=== PATIENT | female | born 1980 | race Two or more races ===

== ENCOUNTER 2024-08-31 07:27 | Outpatient (OUT) | payer BC, SELFPAY ==
[2024-08-31 07:46] LABS: Basophils Percent Auto 0.7 % (0.2-2.0); Eosinophils Absolute Auto 0.1 10^3/uL (0.0-0.7); Eosinophils Percent Auto 2.4 % (0.9-7.0); Hematocrit 35.3 % (36.0-48.0); Hemoglobin 11.2 g/dL (12.0-16.0); Immature Granulocytes Abs Auto 0.02 10^3/uL (0.00-0.03); Immature Granulocytes Pct Auto 0.4 % (0.0-0.5); Lymphocytes Absolute Auto 1.8 10^3/uL (1.2-3.8); Lymphocytes Percent Auto 38.2 % (20.5-60.0); Mean Corpuscular HGB Conc 31.7 g/dL (29.9-35.2); Mean Corpuscular Hemoglobin 25.7 pg (26.7-34.0); Mean Corpuscular Volume 81.1 fL (81.0-99.0); Mean Platelet Volume 9.8 fL (9.5-13.5); Monocytes Absolute Auto 0.5 10^3/uL (0.3-0.8); Monocytes Percent Auto 11.4 % (1.7-12.0); Neutrophils Absolute Auto 2.2 10^3/uL (1.4-6.5); Neutrophils Percent Auto 46.9 % (43.0-75.0); Platelet Count 405 10^3/uL (150-450); Red Blood Count 4.35 10^6/uL (4.20-5.40); Red Cell Distribution Width 15.3 % (11.0-15.0); White Blood Count 4.6 10^3/uL (4.0-11.0)
[2024-08-31 08:27] LABS: Estimated Average Glucose 108 mg/dL; Glycohemoglobin A1C 5.4 % (4.5-6.2)
[2024-08-31 09:27] LABS: Thyroid Stimulating Hormone 1.204 uIU/mL (0.358-3.740)
[2024-08-31 09:28] LABS: HCG Quantitative <1 mIU/mL
[2024-09-01 05:10] LABS: DHEA-Sulfate 59.1 ug/dL (57.3-279.2); FSH 14.2 mIU/mL (.); Luteinizing Hormone(LH) 11.2 mIU/mL (.)
[2024-09-05 11:13] LABS: DHEA, Serum 125 ng/dL (31-701)
== END 2024-08-31 07:28 | disposition home or self-care (01) ==
LOC: LAB 07:28
PROVIDERS: PCP Nurse Practitioner Family; Visit Provider Obstetrics & Gynecology
DX: N92.1 Excessive and frequent menstruation with irregular cycle (principal)
CPT/HCPCS: 36415; 82626; 82627; 83001; 83002; 83036; 84439; 84443; 84702; 85025

== ENCOUNTER 2024-11-02 14:38 | Outpatient (OUT) | payer BC, SELFPAY ==
--- NOTE | 2024-11-02 10:21 | XR_ITS ---
[address] [address] Patient Name: KEVEN MOSES MRN: [id number] date: 1980 Sex: F Assigned Patient Location: [facility] Current Patient Location: [facility] Accession/Order Number: [id number] Exam Date: 11/02/2024 10:47 Report Date: 11/02/2024 10:47 At the request of: LEXX ROWAN DO Procedure: XR chest 2V Chest 2 views CLINICAL HISTORY: Preop exam COMPARISON: None FINDINGS: Heart normal size. Lungs are clear. No free air. XR/XR chest 2V IMPRESSION: NO ACUTE CARDIOPULMONARY ABNORMALITY. Impression dictated by: Raul Rojas Jr., D.O. 11/02/2024 10:47 AM Dictation Location: [place] [address] Electronically authenticated by: [id number] Y Date: 11/02/2024 10:47
== END 2024-11-02 14:39 | disposition home or self-care (01) ==
LOC: PST 14:38
PROVIDERS: PCP Nurse Practitioner Family; Visit Provider Obstetrics & Gynecology
DX: Z01.810 Encounter for preprocedural cardiovascular examination (principal); D25.9 Leiomyoma of uterus, unspecified; N94.6 Dysmenorrhea, unspecified; N92.1 Excessive and frequent menstruation with irregular cycle; R10.2 Pelvic and perineal pain
CPT/HCPCS: 71046

== ENCOUNTER 2024-11-16 09:46 | Day surgery (SDC) | payer BC, SELFPAY ==
[2024-11-02 10:36] VITALS: BP 123/74; PULSE 56; TEMP 36.3; O2SAT 99; BMI 28.2
[2024-11-16] VITALS (9 sets, daily range): BP systolic 108–135; BP diastolic 42–82; PULSE 51–84; TEMP 36.3–36.5; O2SAT 97–100; BMI 21.1; BMI 27.9
[2024-11-16 09:59] LABS: Basophils Percent Auto 0.3 % (0.2-2.0); Eosinophils Absolute Auto 0.1 10^3/uL (0.0-0.7); Eosinophils Percent Auto 0.8 % (0.9-7.0); Hematocrit 37.7 % (36.0-48.0); Immature Granulocytes Abs Auto 0.04 10^3/uL (0.00-0.03); Immature Granulocytes Pct Auto 0.6 % (0.0-0.5); Lymphocytes Absolute Auto 2.1 10^3/uL (1.2-3.8); Lymphocytes Percent Auto 29.7 % (20.5-60.0); Mean Corpuscular HGB Conc 31.8 g/dL (29.9-35.2); Mean Corpuscular Hemoglobin 23.9 pg (26.7-34.0); Mean Corpuscular Volume 75.1 fL (81.0-99.0); Mean Platelet Volume 10.1 fL (9.5-13.5); Monocytes Absolute Auto 0.7 10^3/uL (0.3-0.8); Monocytes Percent Auto 9.6 % (1.7-12.0); Neutrophils Absolute Auto 4.2 10^3/uL (1.4-6.5); Platelet Count 275 10^3/uL (150-450); Red Blood Count 5.02 10^6/uL (4.20-5.40); Red Cell Distribution Width 20.7 % (11.0-15.0); White Blood Count 7.1 10^3/uL (4.0-11.0)
[2024-11-16 10:16] LABS: HCG Quantitative <1 mIU/mL
[2024-11-16] MEDS: LACTATED RINGER'S SOLUTION 1,000 ML 50 ML IV ×2 (10:55→13:40)
--- NOTE | 2024-11-16 13:17 | P.ON_ITS ---
Brief Operative Note Date of procedure: 11/16/24 Pre-op diagnosis general: menorrhagia, pelvic pain,dysmenorrhea, dysparenia Post-op diagnosis: same as pre-op Procedure: NAME OF PROCEDURE: [d&c hysteroscopy, diagnostic laparoscopy, lysis of adhesions] findings-enlarged uterus, multiple uterine fibroids, significant adhesions, intrauterine fibroids PROCEDURE: The patient was taken back to the Operating Room where she was prepped and draped in normal sterile fashion after being placed under general anesthesia without difficulty. She was also placed in the dorsal lithotomy position. A weighted speculum was placed in the patient?s vagina. The anterior lip of the cervix was identified and grasped with a single tooth tenaculum. The patient?s uterus was then sounded roughly to [9? ] cm. The patient was then gently dilated using Hegar dilators. The hysteroscope was passed through the patient?s cervix into the uterus. Both ostia were identified. Normal appearing endometrium. No gross evidence of polyps, fibroids or malignancy. The hysteroscope was then removed from the patient's uterus.? At that point, gentle curettage was performed until a gritty texture was noted. The endometrial curettings were sent out to pathology.? The single tooth tenaculum was then removed from the patient's anterior lip of the cervix where excellent hemostasis was noted. A sponge stick was placed into the patient's vagina. Attention was turned to the patient's abdomen, where a small umbilical incision was made. The fascia was tented using Beltran clamps and the fascia was entered sharply. Confirmation of intraabdominal placement of the 10 mm port was confirmed under direct visualization using a laparoscope. The patient's abdomen was then insufflated using CO2 gas with approximately 4 liters. A second port was placed left laterally, this was done under direct visualization with a 5 mm port. Survey of the patient's abdomen demonstrated normal liver and gallbladder. Survey of the patient's pelvic anatomy demonstrated normal appearing rt and lt ovary and tubes as well as normal appearing uterus. No endometrial implants could be noted, no evidence of any pelvic disease was seen, normal appearing pelvic cavity. All instruments were removed from the patient's abdomen. The patient's abdomen was deinsufflated of CO2 gas. The patient tolerated the procedure well. Sponge stick was removed from the patient's vagina. The patient's infraumbilical fascia was closed using #0 Vicryl on a GI needle. The patient's skin was closed laterally and infraumbilically using 4-0 Vicryl. The patient tolerated the procedure well. Sponge, lap and needle counts were correct x 2. The patient was taken to Recovery Room in stable condition. Anesthesia: DOROTHY Surgeon: Octavio Jackson Pipeline Dispatch Operator: Vanita Hager Estimated blood loss (mL): 5 Pathology: other (endometrial currettings, endometrial polyp, endometrial fibroid) Condition: stable Disposition: PACU
[2024-11-16] MEDS: LACTATED RINGER'S SOLUTION 1,000 ML 150 ML IV (14:46)
--- NOTE | 2024-11-16 15:16 | PC.NURSE ---
Up to bathroom and voids clear yellow without difficulty; peripad changed for scant amount bleeding
[2024-11-16] MEDS: HYDROCODONE/ACET 5-325 MG TABLET 1 TAB PO (15:20)
--- NOTE | 2024-11-16 15:42 | PC.NURSE ---
Up to bathroom and voids without difficulty; peripad changed for small amount dark red bleeding; states she passed a clot with voiding
== END 2024-11-16 15:54 | disposition home or self-care (01) ==
PROVIDERS: PCP Nurse Practitioner Family; Visit Provider Obstetrics & Gynecology
PROC: (CPT 840; principal; 2024-11-16 11:15)
DX: D25.9 Leiomyoma of uterus, unspecified (principal); N94.6 Dysmenorrhea, unspecified; N92.1 Excessive and frequent menstruation with irregular cycle; R10.2 Pelvic and perineal pain; N84.0 Polyp of corpus uteri; F17.290 Nicotine dependence, other tobacco product, uncomplicated; K21.9 Gastro-esophageal reflux disease without esophagitis
CPT/HCPCS: 49329; 58558; 36415; 84702; 85025; 88305; J1100; J1885; J2250; J2704; J3010

== ENCOUNTER 2025-01-25 14:18 | Outpatient (OUT) | payer BC, SELFPAY ==
--- OUTSIDE RECORDS SUMMARY | 2025-01-25 14:20 | XMS_ITS | Clinical Summary ---
Author Organization [facility] Address [address] [place], [place] [id number] Care Team Providers Care Stamping Bench Die Maker Name Role Phone Unavailable Primary Care Provider Unavailabl e Allergies No known active allergies Medications ACETAMINOPHEN (TYLENOL 8 HOUR ORAL) Take by mouth. Active hydrOXYchloroQUI NE (PLAQUENIL) 200 mg tabletIndication s:Systemic lupus erythematosus, unspecified SLE type, unspecified organ involvement status (HCC) Take 1 tablet by mouth once daily. 90 tablet 3 06/05/2021 Active Active Problems Problem Noted Date Diagnosed Date Lupus (systemic lupus erythematosus) 11/02/2012 Idiopathic thrombocytopenic purpura 06/22/2012 Family History Medical History Relation Comments No Ocular Disease Father No Ocular Disease Mother Relation Status Comments Father Mother Social History Tobacco Use Types Packs/Day Years Used Date Smoking Tobacco: Former Smokeless Tobacco: Never Alcohol Use Standard Drinks/Week Comments Yes 0 (1 standard drink = 0.6 oz pur e alcohol) PHQ-2 Answer Date Recorded PHQ-2 score 0 02/14/2020 Area Deprivation Index Answer Date Jonathan rded National Score (1-100), lower number is lower ri sk 84 07/23/2022 State Score (1-10), lower number is lower risk N ot on file 07/23/2022 Data from: https://www.neighborhoodatlas.medicine.[facility].edu/. Last address used for calculation [address] [place] [address] 07/23/2022 Comments No Sex and Gender Information Value Date Recorded Sex Assigned at Not on file Legal Sex Female 10:12 AM EST Gender Identity Not on file Sexual Orientation Not on file Last Filed Vital Signs Vital Sign Reading Time Taken Comments Blood Pressure 103/71 06/12/2021 10:13 AM EST Pulse 63 06/12/2021 10:13 AM EST Temperature 36.7 C (98.1 F) 06/12/2021 10:13 AM EST Respiratory Rate 16 06/12/2021 10:13 AM EST Oxygen Saturation 98% 06/12/2021 10:13 AM EST Inhaled Oxygen Concentration - - Weight 68.6 kg (151 lb 3.2 oz) 06/12/2021 10:13 AM EST Height 160 cm (5' 2.99 ) 06/12/2021 10:13 AM EST Body Mass Index 26.79 06/12/2021 10:13 AM EST Plan of Treatment Health Maintenance Due Date Last Done Comments Anxiety Screening 1998 Depression Screening 1998 HIV Screening 1998 DTaP,Tdap,Td Vaccine (1 - Tdap) 11/30/1999 Hepatitis B Vaccine (1 of 3 - 19+ 3-dose series) 11/29 Cervical Cancer Screening 2001 Mammogram Screening 2020 Influenza Vaccine (#1) 2025 Hepatitis C Screening Completed 09/26/2014 Procedures Procedure Name Priority Date/Time Associated Diagnosis Comments HEP REMOTE PANEL BL Routine 09/26/2014 10:10 AM EDT ITP (idiopathic thrombocytopenic purpura) Lupus (systemic lupus erythematosus) from Last 3 Months or Most Recently Relevant to Health Maintenance Results * HEP REMOTE PANEL BL (09/26/2014 10:10 AM EDT) Hep B Core Ab, Total Negative Negative 09/27/2014 2:15 AM EDT [facility] Hep C Antibody IA Negative Negative 09/27/2014 2:15 AM EDT [facility] HBsAg Negative Negative 09/27/2014 2:15 AM EDT [facility] Hep B Surface Ab, Qual Negative Negative 09/27/2014 2:15 AM EDT [facility] Comment:NEGATIVE Blood specimen (specimen) BLOOD SPECIMEN / Unknown 09/26/2014 10:10 AM EDT 09/26/2014 10:12 AM EDT Ryan Guy [facility] Final Result [facility] [address] [place] [address] from Last 3 Months or Most Recently Relevant to Health Maintenance
--- OUTSIDE RECORDS SUMMARY | 2025-01-25 14:20 | XMS_ITS | Encounter Summary ---
Author Organization [facility] Address [address] [place] [address] Care Team Providers Care Mushroom Laborer Name Role Phone Sammie Diaz SKEINS YARN EXAMINER Unavailable Scott Troy MD Primary Care Provider [phone] Sammie Diaz SKEINS YARN EXAMINER Unavailable Encounter Details Date Type Department Care Team (Late Contact Info) Description 10/19/2023 Abstract [facility] [place] [address] [facility] 110 [place] [address] Unallocated, [facility] ProviderMD [address] [place] [address] Social History Tobacco Use Types Packs/Day Years Used Date Smoking Tobacco: Never Assessed Comments Unknown Sex and Gender Information Value Date Recorded Sex Assigned at Not on file Legal Sex Female 10:52 AM EDT Gender Identity Not on file Sexual Orientation Not on file documented as of this encounter Plan of Treatment Upcoming Encounters Date Type Department Care Team ([facility] Contact Info) Description 02/07/2025 11:10 AM EDT Office Visit SCOTTIE MACKENZIE [address] [facility] [place] [address] Dacia Shah, JOSE L [address] [facility] [place] [address] 03/12/2025 11:20 AM EDT Office Visit SCOTTIE MACKENZIE [address] [place] [address] Mariam Finch PA [address] [place] [address] [place] [address] documented as of this encounter Visit Diagnoses Not on filedocumented in this encounter Care Teams Mushroom Laborer Relationship Specialty Start Date End Date Scott Troy MD [address] [facility] 110 [place] [address] PCP - General Internal Medicine 12/19/23 Sammie Diaz, SKEINS YARN EXAMINER [address] [facility] 110 [place] [address] PCP - [facility] 12/26/23 Sammie Diaz, SKEINS YARN EXAMINER [address] [facility] 110 [place] [address] Nurse Practitioner Family Medicine 11/25/23 documented as of this encounter
--- OUTSIDE RECORDS SUMMARY | 2025-01-25 14:20 | XMS_ITS | Clinical Summary ---
Author Organization [facility] Address [address] [place] [address] Care Team Providers Care Road Test Examiner Name Role Phone Sammie Diaz MAKING MACHINE OPERATOR Unavailable Scott Troy MD Primary Care Provider [phone] Allergies No known active allergies Medications ibuprofen 800 MG tablet TAKE 1 TABLET BY MOUTH EVERY 8 HOURS FOR 14 DAYS 11/16/2024 Active Active Problems Problem Noted Date Diagnosed Date Irregular periods/menstrual cycles 08/20/2024 Menorrhagia with irregular cycle 08/20/2024 Vitamin D deficiency 02/20/2024 Overweight (BMI 25.0-29.9) 02/20/2024 Pain of both elbows 02/20/2024 Lupus (systemic lupus erythematosus) 11/02/2012 Idiopathic thrombocytopenic purpura 06/22/2012 Encounters Date Type Department Care Team Description 01/01/2025 8:40 [place] [address] Lexx Jackson DO Pre-op examination; Dysmenorrhea; Menorrhagia with regular cycle; Pelvic pain; Intramural and submucous leiomyoma of uterus; Dyspareunia in female 11/20/2024 8:50 AM EDT [place] [address] Lexx Jackson DO Postoperative follow-up 11/20/2024 [place] [address] Lexx Jackson DO 11/16/2024 Abstract [facility]ana M[facility]IE [address] [place] [address] Renetta Lexx, 11/16/2024 Clinisync Result Encounter [facility] External Department Unsolicited Lexx Jackson, 11/02/2024 Clinisync Result Encounter [facility] External Department Unsolicited Lexx Jackson, from Last 3 Months Family History Medical History Relation Name Comments Hypertension Father Diabetes Mother Heart attack Mother Heart disease Mother History of rita ast cancer with her siblings. Hyperlipidemia Mother Hypertension Mother Stroke Mother Relation Name Status Comments Father Mother Social History Tobacco Use Types Packs/Day Years Used Date Smoking Tobacco: Never Smokeless Tobacco: Never Alcohol Use Standard Drinks/Week Comments Yes 6 (1 standard drink = 0.6 oz pur e alcohol) Comments No Sex and Gender Information Value Date Recorded Sex Assigned at Not on file Legal Sex Female 10:52 AM EDT Gender Identity Not on file Sexual Orientation Not on file Last Filed Vital Signs Vital Sign Reading Time Taken Comments Blood Pressure 112/70 01/01/2025 8:54 AM EDT Pulse 64 02/20/2024 8:04 AM EDT Temperature - - Respiratory Rate 16 02/20/2024 8:04 AM EDT Oxygen Saturation 99% 02/20/2024 8:04 AM EDT Inhaled Oxygen Concentration - - Weight 67.1 kg (148 lb) 01/01/2025 8:54 AM EDT Height 154.9 cm (5' 1 ) 08/20/2024 1:15 PM EST Body Mass Index 27.96 08/20/2024 1:15 PM EST Plan of Treatment Upcoming Encounters Date Type Department Care Team (Late st Contact Info) Description 02/07/2025 11:10 AM EDT Office Visit SCOTTIE MACKENZIE [address] [place] [address] Dacia Shah, JOSE L [address] [place] [address] 03/12/2025 11:20 AM EDT Office Visit SCOTTIE MACKENZIE [address] [place] [address] Mariam Finch PA [address] [facility] [place] [address] Health Maintenance Due Date Last Done Comments Pap Smear 2001 Cervical Cancer Screening 2010 HPV/Cotest 2010 Mammogram 11/10/2024 11/11/2023 Influenza Vaccine (#1) 2025 Procedures Procedure Name Priority Date/Time Associated Diagnosis Comments [facility] PREG QUANT HCG Routine 11/16/2024 9: 50 AM EDT ALL CBC WITH AUTO DIFF Routine 9:50 AM EDT XR CHEST 2V 11/02/2024 10:47 AM EDT BI MAMMOGRAM SCREENING TOMOSYNTHESIS BILATERAL Routine 11/11/2023 10:13 AM EDT Breast cancer screening by mammogram from Last 3 Months or Most Recently Relevant to Health Maintenance Results * TB PREG QUANT HCG (11/16/2024 9:50 AM EDT) Pathologist [facility] HCG QUANTITATIVE <1 mIU/mL [facility] Comment: 5-50 0.2-1 WEEK 50-500 1-2 WEEKS 100-5,000 2-3 WEEKS 500-10,000 3-4 WEEKS 1,000-50,000 4-5 WEEKS 10,000-100,000 5-6 WEEKS 15,000-200,000 6-8 WEEKS 10,000-100,000 2-3 MONTHS 11/16/2024 9:50 AM EDT 11/16/2024 9:51 AM EDT Narrative CLINIS[facility] - 11/16/2024 10:16 AM EDT us Lexx Renetta DO CLINISYNC Final Result [facility] * (ABNORMAL) ALL CBC WITH AUTO DIFF (11/16/2024 9:50 AM EDT) [facility] TB WBC 7.1 4.0 - 11.0 10 3/uL [facility] TBH RBC 5.02 4.20 - 5.40 10 6/uL [facility] TBH HGB 12.0 12.0 - 16.0 g/dL [facility]H TBH HCT 37.7 36.0 - 48.0 % [facility] TBH MCV 75.1(L) 81.0 - 99.0 fL TBH TBH MCH 23.9(L) 26.7 - 34.0 pg TBH TBH MCHC 31.8 29.9 - 35.2 g/dL [facility]H TBH RDW 20.7(H) 11.0 - 15.0 % TBH TBH PLT 275 150 - 450 10 3/uL TBH TBH MPV 10.1 9.5 - 13.5 fL TBH NEUTROPHILS PERCENT AUTO 59.0 43.0 - 75.0 % [facility] LYMPHOCYTES PERCENT AUTO 29.7 20.5 - 60.0 % [facility] MONOCYTES PERCENT AUTO 9.6 1.7 - 12.0 % [facility] TBH EO % 0.8(L) 0.9 - 7.0 % [facility] BASOPHILS PERCENT AUTO 0.3 0.2 - 2.0 % [facility] IMMATURE GRANULOCYTES PCT AUTO 0.6(H) 0.0 - 0.5 % TB[facility] NEUTROPHILS ABSOLUTE AUTO 4.2 1.4 - 6.5 10 3/uL [facility] LYMPHOCYTES ABSOLUTE AUTO 2.1 1.2 - 3.8 10 3/uL TB[facility] MONOCYTES ABSOLUTE AUTO 0.7 0.3 - 0.8 10 3/uL TBH TBH EO # 0.1 0.0 - 0.7 10 3/uL TB[facility] BASOPHILS ABSOLUTE AUTO 0.0 0.0 - 0.1 10 3/uL [facility] IMMATURE GRANULOCYTES ABS AUTO 0.04(H) 0.00 - 0.03 10 3/uL [facility] 11/16/2024 9:50 AM EDT 11/16/2024 9:51 AM EDT Narrative CLIN[facility]YNC - 11/16/2024 10:01 AM EDT Lexx Jackson DO CLINISYNC Final Result [facility] * XR CHEST 2V (11/02/2024 10:47 AM EDT) Anatomical Region Laterality Modality Other 11/02/2024 10:4 7 AM EDT Narrative 11/02/2024 10:49 AM EDT [address] [address] XRay Report Signed Patient: JANA BARRAGAN MR#: [id number] : 1980 Acct:[id number] Age/Sex: 43 / F ADM Date: Loc: [facility] Attending Dr: Lexx Jackson D.O. Ordering Physician: Lexx Jackson D.O. Date of Service: 11/02/24 Procedure(s): XR chest 2V Accession Number(s): [id number] cc: Lexx Jackson D.O.; Sammie Diaz MAKING MACHINE OPERATOR [place] [address] Patient Name: JANA BARRAGAN MRN: [id number] date: 1980 Sex: F [facility] Current Patient Location: [facility] Accession/Order Number: [id number] Exam Date: 11/02/2024 10:47 Report Date: 11/02/2024 10:47 At the request of: LEXX JACKSON DO Procedure: XR chest 2V Chest 2 views CLINICAL HISTORY: Preop exam COMPARISON: None FINDINGS: Heart normal size. Lungs are clear. No free air. XR/XR chest 2V IMPRESSION: NO ACUTE CARDIOPULMONARY ABNORMALITY. Impression dictated by: Raul Rojas Jr., D.O. 11/02/2024 10:47 AM Dictation Location: [place] [address] Electronically authenticated by: [id number] Y Date: 11/02/2024 10:47 Dictated By: Raul Rojas M.D. Signed By: 11/02/24 1049 DD/ 1047 TD/TT: Polishing Pad Mounter: Procedure Note Radiology, Radiologist, MD - 11/02/[address] [address] XRay Report Signed Patient: JANA BARRAGAN MMR#: [id number] : 1980Acct:[id number] Age/Sex: 43 / FADM Date: Loc: [facility] Attending Dr: Lexx Jackson D.O. Ordering Physician: Lexx Jackson D.O. Date of Service: 11/02/24 Procedure(s): XR chest 2V Accession Number(s): [id number] cc: Lexx Jackson D.O.; Sammie Diaz MAKING MACHINE OPERATOR The [address] [address] Patient Name: JANA BARRAGAN MRN: [id number] date: 1980 Sex: F Assigned Patient Location: [facility] Current Patient Location: [facility] Accession/Order Number: [id number] Exam Date: 11/02/2024 10:47 Report Date: 11/02/2024 10:47 At the request of: LEXX JACKSON DO Procedure: XR chest 2V Chest 2 views CLINICAL HISTORY: Preop exam COMPARISON: None FINDINGS: Heart normal size. Lungs are clear. No free air. XR/XR chest 2V IMPRESSION: NO ACUTE CARDIOPULMONARY ABNORMALITY. Impression dictated by: Raul Rojas Jr., D.O. 11/02/2024 10:47 AM Dictation Location: [place] [address] Electronically authenticated by: [id number] Y Date: 0:47 Dictated By: Raul Rojas M.D. Signed By:11/02/24 1049 DD/ 1047 TD/TT: Polishing Pad Mounter: Lexx Jackson DO [facility]IN[facility]NC IMAGING Final Result * Bilateral screening mammogram with tomosynthesis (11/11/2023 10:13 AM EDT) Anatomical Region Laterality Modality Breast Bilateral Mammography 11/14/2023 6:55 PM EDT Impressions 11/15/2023 8:15 AM EDT BIRADS 2 - Benign Follow-up: Routine Screening Mamm COMMENT: Given dense breast tissue, recommend close correlation with self-breast and clinical exam findings. If any new symptoms or signs present clinically, recommend ultrasound to complement mammography. Board Certified Radiologists. Accredited by the ACR and FDA. MAMMOGRAPHY IS VERY IMPORTANT TO YOUR HEALTH. THE [employer] GUIDELINES RECOMMEND THAT WOMEN 40 YEARS OF AGE AND OLDER SHOULD HAVE A MAMMOGRAM EVERY YEAR. A REMINDER LETTER WILL BE SENT AT THE APPROPRIATE TIME. THIS FACILITY UTILIZES A REMINDER SYSTEM TO ENSURE ALL PATIENTS RECEIVE REMINDER NOTIFICATIONS AT THE APPROPRIATE TIME BASED ON THE RECOMMENDATIONS OF THIS EXAM. THIS INCLUDES REMINDERS FOR ROUTINE SCREENING MAMMOGRAMS, DIAGNOSTIC MAMMOGRAMS IN WHICH THE PATIENT IS ASKED TO RETURN FOR ADDITIONAL VIEWS, OR OTHER BREAST IMAGING INTERVENTIONS WHEN APPROPRIATE. THE PATIENT WILL BE PLACED IN THE APPROPRIATE REMINDER SYSTEM INCLUDING A REMINDER AT THE APPROPRIATE TIME FOR ANY PENDING ADDITIONAL VIEWS. TRANSCRIBED BY: ELECTRONICALLY SIGNED BY: Raul Desai MD Narrative 11/15/2023 8:15 AM EDT EXAMINATION: BI MAMMOGRAM SCREENING TOMOSYNTHESIS BILATERAL CLINICAL HISTORY:sceenings COMPARISON: There are no previous mammograms available for comparison. RESULT: Digital mammography and 3D tomosynthesis of bilateral breasts was performed. Density: Heterogeneously dense [3] Typically benign calcifications. There is no suspicious mass, asymmetry, architectural distortion, or calcification Procedure Note Raul Desai MD - 11/15/2023 EXAMINATION: BI MAMMOGRAM SCREENING TOMOSYNTHESIS BILATERAL CLINICAL HISTORY:sceenings COMPARISON: There are no previous mammograms available for comparison. RESULT: Digital mammography and 3D tomosynthesis of bilateral breasts wasperformed. Density: Heterogeneously dense [3] Typically benign calcifications. There is no suspicious mass, asymmetry, architectural distortion, orcalcification IMPRESSION: BIRADS 2 - Benign Follow-up: Routine Screening Mamm COMMENT: Given dense breast tissue, recommend close correlation withself-breast and clinical exam findings. If any new symptoms or signspresent clinically, recommend ultrasound to complement mammography. Board Certified Radiologists. Accredited by the ACR and FDA. MAMMOGRAPHY IS VERY IMPORTANT TO YOUR HEALTH. THE [employer]UIDELINES RECOMMEND THAT WOMEN 40 YEARS OF AGE AND OLDER SHOULD HAVE AMAMMOGRAM EVERY YEAR. A REMINDER LETTER WILL BE SENT AT THE APPROPRIATE TIME. THIS FACILITYUTILIZES A REMINDER SYSTEM TO ENSURE ALL PATIENTS RECEIVE REMINDERNOTIFICATIONS AT THE APPROPRIATE TIME BASED ON THE RECOMMENDATIONS OF THISEXAM. THIS INCLUDES REMINDERS FOR ROUTINE SCREENING MAMMOGRAMS, DIAGNOSTICMAMMOGRAMS IN WHICH THE PATIENT IS ASKED TO RETURN FOR ADDITIONAL VIEWS,OR OTHER BREAST IMAGING INTERVENTIONS WHEN APPROPRIATE. THE PATIENT WILLBE PLACED IN THE APPROPRIATE REMINDER SYSTEM INCLUDING A REMINDER AT THEAPPROPRIATE TIME FOR ANY PENDING ADDITIONAL VIEWS. TRANSCRIBED BY: ELECTRONICALLY SIGNED BY: Raul Desai MD Sammie Diaz NP IMG BI PROCEDURES Final Result from Last 3 Months or Most Recently Relevant to Health Maintenance Insurance BS Care Teams Road Test Examiner Relationship Specialty Start Date End Date Scott Troy MD [address] [facility] 110 [place] [address] PCP - General Internal Medicine 12/19/23 Sammie Diaz, JOSE L [address] [facility] 110 [place] [address] Nurse Practitioner Family Medicine 11/25/23
--- OUTSIDE RECORDS SUMMARY | 2025-01-25 14:20 | XMS_ITS | Encounter Summary ---
Author Organization [facility] Address [address] [place] [address] Care Team Providers Care Mounter Hand Name Role Phone Sammie Diaz DOUGH MACHINE OPERATOR Unavailable Scott Troy MD Primary Care Provider [phone] Encounter Details Date Type Department Care Team (Late Contact Info) Description 11/16/2024 Abstract SCOTTIE MACKENZIE [address] [place] [address] Octavio Jackson DO [address] [facility] [address] [place], [facility] Social History Tobacco Use Types Packs/Day Years Used Date Smoking Tobacco: Never Smokeless Tobacco: Never Alcohol Use Standard Drinks/Week Comments Yes 6 (1 standard drink = 0.6 oz pur e alcohol) Comments Unknown Sex and Gender Information Value Date Recorded Sex Assigned at Not on file Legal Sex Female 10:52 AM EDT Gender Identity Not on file Sexual Orientation Not on file documented as of this encounter Plan of Treatment Upcoming Encounters Date Type Department Care Team (Late Contact Info) Description 02/07/2025 11:10 AM EDT Office Visit [facility] [address] [facility] [place] [address] Dacia Shah NP [address] [place] [address] 03/12/2025 11:20 AM EDT Office Visit [facility] [address] [facility] [place] [address] Mariam Finch PA [address] [place] [address] [place] [address] documented as of this encounter Visit Diagnoses Not on filedocumented in this encounter Care Teams Mounter Hand Relationship Specialty Start Date End Date Scott Troy MD [address] [facility] 110 [place] [address] PCP - General Internal Medicine 12/19/23 Sammie Diaz, JOSE L [address] [facility] 110 [place] [address] Nurse Practitioner Family Medicine 11/25/23 documented as of this encounter
[2025-01-25 14:56] LABS: Hematocrit 34.3 % (36.0-48.0); Hemoglobin 11.3 g/dL (12.0-16.0); Immature Granulocytes Abs Auto 0.02 10^3/uL (0.00-0.03); Immature Granulocytes Pct Auto 0.3 % (0.0-0.5); Lymphocytes Absolute Auto 1.5 10^3/uL (1.2-3.8); Mean Corpuscular HGB Conc 32.9 g/dL (29.9-35.2); Mean Corpuscular Hemoglobin 26.2 pg (26.7-34.0); Mean Corpuscular Volume 79.6 fL (81.0-99.0); Platelet Count 251 10^3/uL (150-450); Red Blood Count 4.31 10^6/uL (4.20-5.40); White Blood Count 5.8 10^3/uL (4.0-11.0)
[2025-01-25 15:01] LABS: Alanine Aminotransferase 22 U/L (14-59); Albumin Globulin Ratio 1.1; Albumin Level 3.6 g/dL (3.4-5.0); Alkaline Phosphatase 80 U/L (46-116); Anion Gap 14.6; Aspartate Amino Transferase 16 U/L (15-37); Blood Urea Nitrogen 16.0 mg/dL (7.0-18.0); Calcium 8.5 mg/dL (8.5-10.1); Carbon Dioxide 23.8 mmol/L (21.0-32.0); Chloride 105 mmol/L (98-107); Estimated GFR (African America >60 (>=60 mL/min/1.73m^2); Estimated GFR (Non-African Ame >60 (>=60 mL/min/1.73m^2); Globulin 3.4 g/dL; Glucose 93 mg/dL (74-106); Potassium 3.4 mmol/L (3.5-5.1); Sodium 140 mmol/L (136-145); Total Protein 7.0 g/dL (6.4-8.2)
[2025-01-25 15:04] LABS: INR 1.03; Partial Thromboplastin Time 28.4 sec (22.3-36.2); Prothrombin Time 10.9 sec (9.0-11.6)
== END 2025-01-25 14:19 | disposition home or self-care (01) ==
PROVIDERS: PCP Nurse Practitioner Family; Visit Provider Obstetrics & Gynecology
DX: Z01.812 Encounter for preprocedural laboratory examination (principal); D25.0 Submucous leiomyoma of uterus; N94.6 Dysmenorrhea, unspecified; N92.0 Excessive and frequent menstruation with regular cycle; R10.2 Pelvic and perineal pain; N94.10 Unspecified dyspareunia
CPT/HCPCS: 80048; 80076; 85025; 85610; 85730; 86850; 86870; 86880; 86900; 86901; 86905; 86906

== ENCOUNTER 2025-01-31 12:33 | Inpatient (IN) | payer BC, SELFPAY ==
[2025-01-25 14:37] VITALS: BP 115/73; PULSE 71; TEMP 36.4; O2SAT 100; BMI 27.6
[2025-01-31] VITALS (15 sets, daily range): BP systolic 106–152; BP diastolic 69–90; PULSE 46–71; TEMP 35.8–36.8; O2SAT 92–100; BMI 27.8
[2025-01-31 10:52] LABS: Hematocrit 38.0 % (36.0-48.0); Hemoglobin 12.4 g/dL (12.0-16.0); Immature Granulocytes Abs Auto 0.01 10^3/uL (0.00-0.03); Immature Granulocytes Pct Auto 0.2 % (0.0-0.5); Lymphocytes Absolute Auto 2.0 10^3/uL (1.2-3.8); Mean Corpuscular HGB Conc 32.6 g/dL (29.9-35.2); Mean Corpuscular Hemoglobin 26.2 pg (26.7-34.0); Mean Corpuscular Volume 80.3 fL (81.0-99.0); Platelet Count 238 10^3/uL (150-450); Red Blood Count 4.73 10^6/uL (4.20-5.40); White Blood Count 6.1 10^3/uL (4.0-11.0)
--- NOTE | 2025-01-31 11:00 | ECG_ITS ---
[facility] Test Date: 2025-01-31 Pat Name: KEVEN MOSES Department: Room: - Gender: Female Heavy Truck Mechanic: : 1980 Requested By: LEXX ROWAN Order Number: [id number] Reading MD: SHON AVALOS M.D. Measurements Intervals [place] Rate: 56 P: 53 TX: 142 QRS: -25 QRSD: 98 T: 24 QT: 415 QTc: 403 Interpretive Statements SINUS BRADYCARDIA BORDERLINE LEFT AXIS DEVIATION [QRS AXIS < -20] Borderline ECG No previous ECG available for comparison Electronically Signed On 02-02-2025 7:30:22 EDT by SHON AVALOS M.D.
[2025-01-31 11:24] LABS: Alanine Aminotransferase 19 U/L (14-59); Albumin Globulin Ratio 0.9; Albumin Level 3.6 g/dL (3.4-5.0); Alkaline Phosphatase 78 U/L (46-116); Anion Gap 12.3; Aspartate Amino Transferase 13 U/L (15-37); Blood Urea Nitrogen 11.0 mg/dL (7.0-18.0); Calcium 8.9 mg/dL (8.5-10.1); Carbon Dioxide 25.4 mmol/L (21.0-32.0); Chloride 106 mmol/L (98-107); Estimated GFR (African America >60 (>=60 mL/min/1.73m^2); Estimated GFR (Non-African Ame >60 (>=60 mL/min/1.73m^2); Globulin 3.8 g/dL; Glucose 100 mg/dL (74-106); Potassium 3.7 mmol/L (3.5-5.1); Sodium 140 mmol/L (136-145); Total Protein 7.4 g/dL (6.4-8.2)
--- OUTSIDE RECORDS SUMMARY | 2025-01-31 12:15 | XMS_ITS | Encounter Summary ---
Author Organization [facility] Address [address] [place] [address] Care Team Providers Care Infectious Disease Physician Name Role Phone Sammie Diaz NEEDLE LOOM TENDER Unavailable Scott Troy MD Primary Care Provider [phone] Sammie Diaz NEEDLE LOOM TENDER Unavailable Encounter Details Date Type Department Care Team (Late Contact Info) Description 10/19/2023 Abstract SCOTTIE Bello [facility] [address] [facility] 110 [place] [address] Unallocated, [facility] Provider[facility] [address] [place] [address] Social History Tobacco Use Types Packs/Day Years Used Date Smoking Tobacco: Never Assessed Comments Unknown Sex and Gender Information Value Date Recorded Sex Assigned at Not on file Legal Sex Female 10:52 AM EDT Gender Identity Not on file Sexual Orientation Not on file documented as of this encounter Plan of Treatment Upcoming Encounters Date Type Department Care Team ([facility] Contact Info) Description 02/07/2025 11:10 AM EDT Office Visit SCOTTIE MACKENZIE [address] [facility] [place] [address] Dacia Shah, JOSE L [address] [facility] [place] [address] 03/12/2025 11:20 AM EDT Office Visit SCOTTIE MACKENZIE [address] [place] [address] Mariam Finch PA [address] [place] [address] [place] [address] documented as of this encounter Visit Diagnoses Not on filedocumented in this encounter Care Teams Infectious Disease Physician Relationship Specialty Start Date End Date Scott Troy MD 112 [facility] 110 [place] [address] PCP - General Internal Medicine 12/19/23 Sammie Diaz, NEEDLE LOOM TENDER [address] [facility] 110 [place] [address] PCP - [facility] 12/26/23 Sammie Diaz, NEEDLE LOOM TENDER 112 [facility] 110 [place] [address] Nurse Practitioner Family Medicine 11/25/23 documented as of this encounter
--- OUTSIDE RECORDS SUMMARY | 2025-01-31 12:15 | XMS_ITS | Encounter Summary ---
Author Organization [facility] Address [address] [place] [address] Care Team Providers Care Rn Lactation Consultant Name Role Phone Sammie Diaz ICE CREAM SCOOPER Unavailable Scott Troy MD Primary Care Provider [phone] Encounter Details Date Type Department Care Team (Late Contact Info) Description 11/16/2024 Abstract SCOTTIE MACKENZIE 102 [facility] [place] [address] Octavio Jackson DO [address] [facility] [address] [place], [facility] Social History Tobacco Use Types Packs/Day Years [...] AM EDT Office Visit SCOTTIE MACKENZIE 102 [facility] [place] [address] Dacia Shah NP [address] [place] [address] 03/12/2025 11:20 AM EDT Office Visit SCOTTIE MACKENZIE 102 [facility] [place] [address] Mariam Finch PA [address] [place] [address] [place] [address] documented as of this encounter Visit Diagnoses Not on filedocumented in this encounter Care Teams Rn Lactation Consultant Relationship Specialty Start Date End Date Scott Troy MD 112 [place] [facility] 110 [place] [address] PCP - General Internal Medicine 12/19/23 Sammie Diaz, JOSE L 112 [facility] 110 [place] [address] Nurse Practitioner Family Medicine 11/25/23 documented as of this encounter
--- OUTSIDE RECORDS SUMMARY | 2025-01-31 12:15 | XMS_ITS | Encounter Summary ---
Author Organization [facility] Address [address] [place] [address] Care Team Providers Care Hand Finisher Name Role Phone Joe Sammie Sheets WHEEL CLEANER Unavailable Scott Troy MD Primary Care Provider [phone] Encounter Details Date Type Department Care Team (Late Contact Info) Description 01/28/2025 Orders Only NOMTj MACKENZIE [address] [place] [address] Octavio Jackson DO [address] [facility] [address] [place], [place] [id number] Irregular periods/menstrual cycles; Idiopathic thrombocytopenic purpura (HCC); Vitamin D deficiency Social History Tobacco Use Types Packs/Day Years [...] on file documented as of this encounter Progress Notes * Michelle Kearney LPN - 01/28/2025 9:16 AM EDT Orders needed for upcoming surgery on 01/31/25--ss documented in this encounter Plan of Treatment Upcoming Encounters Date Type Department Care Team (Late Contact Info) Description 02/07/2025 11:10 AM EDT Office Visit NOMS Prabhakar MACKENZIE [address] [place] [address] Dacia Shah NP [address] [facility] [place] [address] 03/12/2025 11:20 AM EDT Office Visit NOMS Prabhakar MACKENZIE [address] [facility] [place] [address] Mariam Finch PA [address] [facility] [place] [address] Scheduled Orders Name Type Priority Associated Diagnoses Orde r Schedule Type and screen Lab Routine Irregular periods/menstrual cycles Idiopathic thrombocytopenic purpura (HCC) Vitamin D deficiency Expected: 01/28/2025 (Approximate), Expires: 01/28/2026 Prepare RBC: 2 Units Blood Bank Routine Irregular periods/menstrual cycles Idiopathic thrombocytopenic purpura (HCC) Vitamin D deficiency Expected: 01/28/2025 (Approximate), Expires: 01/28/2026 documented as of this encounter Visit Diagnoses Diagnosis Irregular periods/menstrual cycles Idiopathic thrombocytopenic purpura (HCC) Immune thrombocytopenic purpura Vitamin D deficiency documented in this encounter Care Teams Hand Finisher Relationship Specialty Start Date End Date Scott Troy MD [address] [place] [facility] 110 [place] [address] PCP - General Internal Medicine 12/19/23 Sammie Diaz, JOSE L [address] [facility] 110 [place] [address] Nurse Practitioner Family Medicine 11/25/23 documented as of this encounter
--- OUTSIDE RECORDS SUMMARY | 2025-01-31 12:15 | XMS_ITS | Clinical Summary ---
Author Organization [employer] [facility] Address [facility] [place] [address] Care Team Providers Care Flight Simulator Teacher Name Role Phone Unavailable Primary Care Provider Unavailabl e Social History Tobacco Use Types Packs/Day Years Used Date Smoking Tobacco: Never Assessed Childcare Answer Date Recorded Childcare Unknown 12/06/2018 Employment Answer Date Recorded Employment Unknown 12/06/2018 Comments Unknown Sex and Gender Information Value Date Recorded Sex Assigned at Not on file Legal Sex Female 11:39 AM EDT Gender Identity Not on file Sexual Orientation Not on file Plan of Treatment Not on file Medical Devices Not on file
--- OUTSIDE RECORDS SUMMARY | 2025-01-31 12:15 | XMS_ITS | Clinical Summary ---
Author Organization [facility] Address [address] [place] [address] Care Team Providers Care Director Of Home Care Hospice Name Role Phone Sammie Diaz BOAT TESTER Unavailable Scott Troy MD Primary Care Provider [phone] Allergies No known active allergies Medications ibuprofen [...] Encounters Date Type Department Care Team Description 01/31/2025 Clinisync Result Encounter NOMS External Department Unsolicited Lexx Jackson DO 01/28/2025 [place] [address] Lexx Jackson DO Irregular periods/menstrual cycles; Idiopathic thrombocytopenic purpura (HCC); Vitamin D deficiency 01/25/2025 Clinisync Result Encounter NOMS External Department Unsolicited Lexx Jackson DO 01/01/2025 8:40 AM EDT [place] [address] Lexx Jackson DO Pre-op examination; Dysmenorrhea; Menorrhagia with regular cycle; Pelvic pain; Intramural and submucous leiomyoma of uterus; Dyspareunia in female 11/20/2024 8:50 AM EDT [place] [address] Lexx Jackson DO Postoperative follow-up 11/20/2024 Bamboo flowsheet NOMS Alana MACKENZIE 102 [facility] [address] Lexx Jackson, 11/16/2024 Abstract NOMS Alana MACKENZIE [address] [place] [address] Lexx Jackson, 11/16/2024 Clinisync Result Encounter NOMS External Department Unsolicited Lexx Jackson, 11/02/2024 Clinisync Result Encounter NOMS External Department Unsolicited Lexx Jackson DO from Last 3 Months Family History Medical [...] AM EDT Office Visit SCOTTIE MACKENZIE 102 [facility] [place] [address] Dacia Shah, JOSE L [address] [facility] [place] [address] 03/12/2025 11:20 AM EDT Office Visit SCOTTIE MACKENZIE 102 [facility] [place] [address] Mariam Finch PA [address] [facility] [place] [address] Health Maintenance Due Date Last Done Comments Pap Smear 2001 Cervical Cancer Screening 2010 HPV/Cotest 2010 Mammogram 11/10/2024 11/11/2023 Influenza Vaccine (#1) 2025 Procedures Procedure Name Priority Date/Time Associated Diagnosis Comments TBH PREG QUANT HCG Routine 01/31/2025 10 :47 AM EDT [facility] CMP (CMP) (FOR REMOTE [facility] USE) Routine 01/31/2025 10:47 AM EDT ALL CBC WITH AUTO DIFF Routine 10:47 AM EDT HMHP ANTIBODY ID Routine 01/25/2025 2:35 PM EDT ALL TYPE AND SCREEN Routine 01/25/2025 2 :35 PM EDT [facility] APTT Routine 01/25/2025 2:35 PM EDT SRMCO[facility] PROTHROMBIN TIME INR W/O COUM Routine 01/25/2025 2:35 PM EDT ALL BASIC METABOLIC PANEL Routine 01/25/2025 2:35 PM EDT HMHP LIVER PANEL Routine 01/25/2025 2:35 PM EDT ALL CBC WITH AUTO DIFF Routine 2:35 PM EDT TBH PREG QUANT HCG Routine 11/16/2024 9: 50 AM EDT ALL CBC WITH AUTO DIFF Routine 9:50 AM EDT XR CHEST 2V 11/02/2024 10:47 AM EDT BI MAMMOGRAM SCREENING TOMOSYNTHESIS BILATERAL Routine 11/11/2023 10:13 AM EDT Breast cancer screening by mammogram from Last 3 Months or Most Recently Relevant to Health Maintenance Results * TBH PREG QUANT HCG (01/31/2025 10:47 AM EDT) Only the most recent of2 resultswithin the time period is included. HCG QUANTITATIVE <1 mIU/mL TBH Comment: 5-50 0.2-1 WEEK 50-500 1-2 WEEKS 100-5,000 2-3 WEEKS 500-10,000 3-4 WEEKS 1,000-50,000 4-5 WEEKS 10,000-100,000 5-6 WEEKS 15,000-200,000 6-8 WEEKS 10,000-100,000 2-3 MONTHS 01/31/2025 10:4 7 AM EDT 01/31/2025 10:49 AM EDT Narrative CLINISYNC - 01/31/2025 11:46 AM EDT us Lexx Renetta DO CLINISYNC Final Result CLINIS[facility]NC TB * (ABNORMAL) [facility] CMP (CMP) (FOR REMOTE [facility] USE) (01/31/2025 10:47 AM EDT) SODIUM 140 136 - 145 mmol/L TBH POTASSIUM 3.7 3.5 - 5.1 mmol/L TBH CHLORIDE 106 98 - 107 mmol/L TBH CARBON DIOXIDE 25.4 21.0 - 32.0 mmol/L TBH ANION GAP 12.3 TBH GLUCOSE 100 74 - 106 mg/dL TBH BLOOD UREA NITROGEN 11.0 7.0 - 18.0 mg/dL TBH CREATININE 0.40(L) 0.55 - 1.02 mg/dL TBH TBH EGFR-AF RWANDAN >60 >=60 mL/min/1. 73m 2 TBH TBH EGFR-NON AF RWANDAN >60 >=60 mL/min/1. 73m 2 TBH BUN CREATININE RATIO 27.5 TBH CALCIUM 8.9 8.5 - 10.1 mg/dL TBH BILIRUBIN TOTAL 0.4 0.2 - 1.0 mg/dL TBH ASPARTATE AMINO TRANSFERASE 13(L) 15 - 37 U/L TBH ALANINE AMINOTRANSFERASE 19 14 - 59 U/L TBH ALKALINE PHOSPHATASE 78 46 - 116 U/L TBH TOTAL PROTEIN 7.4 6.4 - 8.2 g/dL TBH ALBUMIN LEVEL 3.6 3.4 - 5.0 g/dL TBH GLOBULIN 3.8 g/dL TBH ALBUMIN GLOBULIN RATIO 0.9 TBH 01/31/2025 10:4 7 AM EDT 01/31/2025 10:49 AM EDT Narrative CLINISYNC - 01/31/2025 11:46 AM EDT us Lexx Renetta DO CLINISYNC Final Result [facility] * (ABNORMAL) ALL CBC WITH AUTO DIFF (01/31/2025 10:47 AM EDT) Only the most recent of3 resultswithin the time period is included. TBH WBC 6.1 4.0 - 11.0 10 3/uL TBH TBH RBC 4.73 4.20 - 5.40 10 6/uL TBH TBH HGB 12.4 12.0 - 16.0 g/dL TBH TBH HCT 38.0 36.0 - 48.0 % TBH TBH MCV 80.3(L) 81.0 - 99.0 fL TBH TBH MCH 26.2(L) 26.7 - 34.0 pg TBH TBH MCHC 32.6 29.9 - 35.2 g/dL TBH TBH RDW 16.9(H) 11.0 - 15.0 % TBH TBH PLT 238 150 - 450 10 3/uL TBH TBH MPV 10.6 9.5 - 13.5 fL TBH NEUTROPHILS PERCENT AUTO 56.5 43.0 - 75.0 % TBH LYMPHOCYTES PERCENT AUTO 33.6 20.5 - 60.0 % TBH MONOCYTES PERCENT AUTO 8.1 1.7 - 12.0 % TBH TBH EO % 1.3 0.9 - 7.0 % TBH BASOPHILS PERCENT AUTO 0.3 0.2 - 2.0 % TBH IMMATURE GRANULOCYTES PCT AUTO 0.2 0.0 - 0.5 % TBH NEUTROPHILS ABSOLUTE AUTO 3.4 1.4 - 6.5 10 3/uL TBH LYMPHOCYTES ABSOLUTE AUTO 2.0 1.2 - 3.8 10 3/uL TBH MONOCYTES ABSOLUTE AUTO 0.5 0.3 - 0.8 10 3/uL TBH TBH EO # 0.1 0.0 - 0.7 10 3/uL TBH BASOPHILS ABSOLUTE AUTO 0.0 0.0 - 0.1 10 3/uL TBH IMMATURE GRANULOCYTES ABS AUTO 0.01 0.00 - 0.03 10 3/uL TBH 01/31/2025 10:4 7 AM EDT 01/31/2025 10:49 AM EDT Narrative CLINISYNC - 01/31/2025 11:00 AM EDT Lexx Jackson DO CLINISYNC Final Result [facility] * [facility] PROTHROMBIN TIME INR W/O COUM (01/25/2025 2:35 PM EDT) Pathologist [facility] PROTHROMBIN TIME 10.9 9.0 - 11.6 sec TBH TBH INR 1.03 TBH Comment: DESIRED INR: 2.0-3.0 CONDITIONS NOT LISTED BELOW 2.5-3.5 FOR PROSTHETIC HEART VALVE REPLACEMENT 2.5-3.5 RECURRENT THROMBOSIS 01/25/2025 2:35 PM EDT 01/25/2025 2:40 PM EDT Narrative CLINISYNC - 01/25/2025 3:23 PM EDT [facility] Renetta DO CLINISYNC Final Result CLINISYNC TBH * HMHP LIVER PANEL (01/25/2025 2:35 PM EDT) BILIRUBIN TOTAL 0.4 0.2 - 1.0 mg/dL TB BILIRUBIN DIRECT 0.1 0.0 - 0.2 mg/dL TBH ASPARTATE AMINO TRANSFERASE 16 15 - 37 U/L TBH ALANINE AMINOTRANSFERASE 22 14 - 59 U/L TBH ALKALINE PHOSPHATASE 80 46 - 116 U/L TB TOTAL PROTEIN 7.0 6.4 - 8.2 g/dL TBH ALBUMIN LEVEL 3.6 3.4 - 5.0 g/dL TBH GLOBULIN 3.4 g/dL TBH ALBUMIN GLOBULIN RATIO 1.1 TBH 01/25/2025 2:35 PM EDT 01/25/2025 2:40 PM EDT Narrative CLINISYNC - 01/25/2025 3:11 PM EDT [facility] DO CLINISYNC Final Result Performing Organization Address [facility]/ZIP Co de Phone Number CLINISYNC TB * HMHP ANTIBODY ID (01/25/2025 2:35 PM EDT) Pathologist [facility] TB ANTIBODY ID PANEL [facility] Comment:PERFORMED BY [employer]AN [employer] 01/25/2025 2:35 PM EDT 01/25/2025 2:40 PM EDT Narrative CLINISYNC - 01/31/2025 8:53 AM EDT [facility] , [facility] Renetta DO CLINISYNC Final Result CLINISYNC TBH * [facility]CF APTT (01/25/2025 2:35 PM EDT) PARTIAL THROMBOPLASTIN TIME 28.4 22.3 - 36.2 sec TBH 01/25/2025 2:35 PM EDT 01/25/2025 2:40 PM EDT Narrative CLINISYNV - 01/25/2025 3:23 PM EDT us Lexx Renetta DO CLINISYNC Final Result [facility] * ALL TYPE AND SCREEN (01/25/2025 2:35 PM EDT) Pathologist [facility] BLOOD TYPE O Positive TBH ANTIBODY SCREEN POSITIVE TBH 01/25/2025 2:35 PM EDT 01/25/2025 2:40 PM EDT Narrative CLINISYNV - 01/31/2025 8:53 AM EDT Spec expiration changed by EncentuateFER on 01/25/25 Reason: SURGICAL EXTENSION Spec expiration changed by NSCHAFER on 01/25/25 Reason: ANTIBODY SCREEN POSITIVE [facility] , [employer] DO CLINISYNC Final Result Performing Organization Address City/[facility]/ZIP Co de Phone Number [facility] * (ABNORMAL) ALL BASIC METABOLIC PANEL (01/25/2025 2:35 PM EDT) SODIUM 140 136 - 145 mmol/L TBH POTASSIUM 3.4(L) 3.5 - 5.1 mmol/L TBH CHLORIDE 105 98 - 107 mmol/L TBH CARBON DIOXIDE 23.8 21.0 - 32.0 mmol/L TBH ANION GAP 14.6 TBH GLUCOSE 93 74 - 106 mg/dL TBH BLOOD UREA NITROGEN 16.0 7.0 - 18.0 mg/dL TBH CREATININE 0.48(L) 0.55 - 1.02 mg/dL TBH TBH EGFR-AF RWANDAN >60 >=60 mL/min/1.7 3m 2 TBH TBH EGFR-NON AF RWANDAN >60 >=60 mL/min/1.7 3m 2 TBH BUN CREATININE RATIO 33.3 TBH CALCIUM 8.5 8.5 - 10.1 mg/dL TBH 01/25/2025 2:35 PM EDT 01/25/2025 2:40 PM EDT Narrative CLINISYNC - 01/25/2025 3:11 PM EDT Lexx Jackson DO CLINISYNC Final Result [facility] * XR CHEST 2V (11/02/2024 10:47 AM EDT) Anatomical Region Laterality Modality Other 11/02/2024 10:4 7 AM EDT Narrative 11/02/2024 10:[place] [address] XRay Report Signed Patient: JANA BARRAGAN MR#: [id number] : 1980 Acct:[id number] Age/Sex: 43 / F ADM Date: Loc: [facility] Attending Dr: Lexx Jackson D.O. Ordering Physician: Lexx Jackson D.O. Date of Service: 11/02/24 Procedure(s): XR chest 2V Accession Number(s): [id number] cc: Lexx Jackson D.O.; Sammie Diaz BOAT TESTER [place] [id number] Patient Name: JANA BARRAGAN MRN: [id number] date: 1980 Sex: F Assigned Patient Location: [facility] Current Patient Location: [facility] Accession/Order Number: [id number] Exam Date: 11/02/2024 10:47 Report Date: 11/02/2024 10:47 At the request of: ELXX JACKSON DO Procedure: XR chest 2V Chest 2 views CLINICAL HISTORY: Preop exam COMPARISON: None FINDINGS: Heart normal size. Lungs are clear. No free air. XR/XR chest 2V IMPRESSION: NO ACUTE CARDIOPULMONARY ABNORMALITY. Impression dictated by: Raul Rojas Jr., D.O. 11/02/2024 10:47 AM Dictation Location: [place] [address] Electronically authenticated by: [id number] Y Date: 11/02/2024 10:47 Dictated By: Raul Rojas M.D. Signed By: 11/02/249 DD/ 46 TD/TT: Gaming Investigator: Procedure Note Radiology, Radiologist, - 11/02/2024 [place] [address] XRay Report Signed Patient: JANA BARRAGAN MMR#: [id number] : 1980Acct:[id number] Age/Sex: 43 / FADM Date: Loc: [facility] Attending Dr: Lexx Jackson D.O. Ordering Physician: Lexx Jackson D.O. Date of Service: 11/02/24 Procedure(s): XR chest 2V Accession Number(s): [id number] cc: Lexx Jackson D.O.; Sammie Diaz BOAT TESTER [place] [address] Patient Name: JANA BARRAGAN MRN: [id number] date: 1980 Sex: F Assigned Patient Location: [facility] Current Patient Location: [facility] Accession/Order Number: [id number] Exam Date: 11/02/2024 10:47 Report Date: 11/02/2024 10:47 At the request of: LEXX JACKSON DO Procedure: XR chest 2V Chest 2 views CLINICAL HISTORY: Preop exam COMPARISON: None FINDINGS: Heart normal size. Lungs are clear. No free air. XR/XR chest 2V IMPRESSION: NO ACUTE CARDIOPULMONARY ABNORMALITY. Impression dictated by: Raul Rojas Jr., D.O. 11/02/2024 10:47 AM Dictation Location: [place] [address] Electronically authenticated by: [id number] Y Date: 0:47 Dictated By: Raul Rojas M.D. Signed By:11/02/249 DD/ 46 TD/TT: Gaming Investigator: us Lexx Jackson DO CLINISYNC IMAGING Final Result [...] IS VERY IMPORTANT TO YOUR HEALTH. THE [place] [employer] GUIDELINES RECOMMEND THAT WOMEN 40 [...] IS VERY IMPORTANT TO YOUR HEALTH. THE [place] [employer]IETYGUIDELINES RECOMMEND THAT WOMEN 40 YEARS [...] Most Recently Relevant to Health Maintenance Insurance Care Teams Director Of Home Care Hospice Relationship Specialty Start Date End Date Scott Troy MD 112 [facility] 110 [place] [address] PCP - General Internal Medicine 12/19/23 Sammie Diaz, JOSE L [address] [place] 110 [place] [address] Nurse Practitioner Family Medicine 11/25/23
--- OUTSIDE RECORDS SUMMARY | 2025-01-31 12:15 | XMS_ITS | Encounter Summary ---
Author Organization [facility] Address [address] [place] [address] Care Team Providers Care Project Management Manager Name Role Phone Sammie Diaz SECURITY SYSTEMS ADMINISTRATOR Unavailable Scott Troy MD Primary Care Provider [phone] Encounter Details Date Type Department Care Team (Late Contact Info) Description 01/25/2025 Clinisync Result Encounter NOMS External Department Unsolicited Octavio Jackson DO [address] [facility] [place] [address] Social History Tobacco Use Types Packs/Day Years [...] AM EDT Office Visit SCOTTIE MACKENZIE [address] [facility] [facility] [place] [address] Dacia Shah, JOSE L [address] [place] [address] 03/12/2025 11:20 AM EDT Office Visit SCOTTIE MACKENZIE [address] [facility] [place] [address] Mariam Finch PA [address] [place] [address] documented as of this encounter Procedures Procedure Name Priority Date/Time Associated Diagnosis Comments SRMCOH PROTHROMBIN TIME INR W/O COUM Routine 01/25/2025 2:35 PM EDT HMHP LIVER PANEL Routine 01/25/2025 2:35 PM EDT HMHP ANTIBODY ID Routine 01/25/2025 2:35 PM EDT CCF APTT Routine 01/25/2025 2:35 PM EDT ALL TYPE AND SCREEN Routine 01/25/2025 2 :35 PM EDT ALL CBC WITH AUTO DIFF Routine 01/25/2025 2:35 PM EDT ALL BASIC METABOLIC PANEL Routine 01/25/2025 2:35 PM EDT documented in this encounter Results * HMHP ANTIBODY ID (01/25/2025 2:35 PM EDT) TB ANTIBODY ID PANEL K TBH Comment:PERFORMED BY GERMAN JEAN RED CROSS 01/25/2025 2:35 PM EDT 01/25/2025 2:40 PM EDT Narrative CLINISYNC - 01/31/2025 8:53 AM EDT [facility] , us Octavio Renetta DO CLINISYNC Final Result CLINISYNC TBH * ALL TYPE AND SCREEN (01/25/2025 2:35 PM EDT) BLOOD TYPE O Positive TBH ANTIBODY SCREEN POSITIVE TBH 01/25/2025 2:35 PM EDT 01/25/2025 2:40 PM EDT Narrative CLINISYNC - 01/31/2025 8:53 AM EDT Spec expiration changed by SHAISTAFER on 01/25/25 Reason: SURGICAL EXTENSION Spec expiration changed by NSCSHANITAFER on 01/25/25 Reason: ANTIBODY SCREEN POSITIVE [facility] , Octavio Renetta DO CLINISYNC Final Result [facility] * CCF APTT (01/25/2025 2:35 PM EDT) PARTIAL THROMBOPLASTIN TIME 28.4 22.3 - 36.2 sec TBH 01/25/2025 2:35 PM EDT 01/25/2025 2:40 PM EDT Narrative CLINISYNC - 01/25/2025 3:23 PM EDT Octavio Renetta DO CLINISYNC Final Result [facility] * SRMCOH PROTHROMBIN TIME INR W/O COUM (01/25/2025 2:35 PM EDT) PROTHROMBIN TIME 10.9 9.0 - 11.6 sec TBH TBH INR 1.03 TBH Comment: DESIRED INR: 2.0-3.0 CONDITIONS NOT LISTED BELOW 2.5-3.5 FOR PROSTHETIC HEART VALVE REPLACEMENT 2.5-3.5 RECURRENT THROMBOSIS 01/25/2025 2:35 PM EDT 01/25/2025 2:40 PM EDT Narrative CLINISYNC - 01/25/2025 3:23 PM EDT Camileon Heelso DO CLINISYNC Final Result [facility] * (ABNORMAL) ALL BASIC METABOLIC PANEL (01/25/2025 [...] 0.55 - 1.02 mg/dL TBH TBH EGFR-AF DANISH >60 >=60 mL/min/1.7 3m 2 TBH TBH EGFR-NON AF DANISH >60 >=60 mL/min/1.7 3m 2 TBH BUN CREATININE RATIO 33.3 TBH CALCIUM 8.5 8.5 - 10.1 mg/dL TBH 01/25/2025 2:35 PM EDT 01/25/2025 2:40 PM EDT Narrative CLINISYNC - 01/25/2025 3:11 PM EDT Octavio Renetta DO CLINISYNC Final Result Performing Organization Address City/[facility]/ZIP Co de Phone Number [facility] * HMHP LIVER PANEL (01/25/2025 2:35 PM EDT) BILIRUBIN TOTAL 0.4 0.2 - 1.0 mg/dL TB BILIRUBIN DIRECT 0.1 0.0 - 0.2 mg/dL TB ASPARTATE AMINO TRANSFERASE 16 15 - 37 [...] Narrative CLINISYNC - 01/25/2025 3:11 PM EDT Octavio Renetta DO CLINISYNC Final Result [facility] * (ABNORMAL) ALL CBC WITH AUTO DIFF (01/25/2025 2:35 PM EDT) TBH WBC 5.8 4.0 - 11.0 10 3/uL TBH TBH RBC 4.31 4.20 - 5.40 10 6/uL TBH TBH HGB 11.3(L) 12.0 - 16.0 g/dL TBH TBH HCT 34.3(L) 36.0 - 48.0 % TBH TBH MCV 79.6(L) 81.0 - 99.0 fL TBH TBH MCH 26.2(L) 26.7 - 34.0 pg TBH TBH MCHC 32.9 29.9 - 35.2 g/dL TBH TBH RDW 17.0(H) 11.0 - 15.0 % TBH TBH PLT 251 150 - 450 10 3/uL TBH TBH MPV 10.4 9.5 - 13.5 fL TBH NEUTROPHILS PERCENT AUTO 64.7 43.0 - 75.0 % TBH LYMPHOCYTES PERCENT AUTO 25.0 20.5 - 60.0 % TBH MONOCYTES PERCENT AUTO 8.4 1.7 - 12.0 % TBH TBH EO % 1.4 0.9 - 7.0 % TBH BASOPHILS PERCENT AUTO 0.2 0.2 - 2.0 % TBH IMMATURE GRANULOCYTES PCT AUTO 0.3 0.0 - 0.5 % TBH NEUTROPHILS ABSOLUTE AUTO 3.8 1.4 - 6.5 10 3/uL TBH LYMPHOCYTES ABSOLUTE AUTO 1.5 1.2 - 3.8 10 3/uL TBH MONOCYTES ABSOLUTE AUTO 0.5 0.3 - 0.8 10 3/uL TBH TBH EO # 0.1 0.0 - 0.7 10 3/uL TBH BASOPHILS ABSOLUTE AUTO 0.0 0.0 - 0.1 10 3/uL TBH IMMATURE GRANULOCYTES ABS AUTO 0.02 0.00 - 0.03 10 3/uL TBH 01/25/2025 2:35 PM EDT 01/25/2025 2:40 PM EDT Narrative CLINISYNC - 01/25/2025 3:00 PM EDT us Octavio Renetta DO CLINISYNC Final Result CLINISYNC TB documented in this encounter Visit Diagnoses Not on filedocumented in this encounter Care Teams Project Management Manager Relationship Specialty Start Date End Date Scott Troy MD [address] [facility] 110 [place] [address] PCP - General Internal Medicine 12/19/23 Sammie Diaz, JOSE L [address] [facility] 110 [place] [address] Nurse Practitioner Family Medicine 11/25/23 documented as of this encounter
--- OUTSIDE RECORDS SUMMARY | 2025-01-31 12:15 | XMS_ITS | Encounter Summary ---
Author Organization [facility] Address [address] [place] [address] Care Team Providers Care Cork Floor Installer Name Role Phone Sammie Diaz PAIRER INSPECTOR Unavailable Scott Troy MD Primary Care Provider [phone] Encounter Details Date Type Department Care Team (Late Contact Info) Description 01/31/2025 Clinisync Result Encounter NOMS External Department Unsolicited Octavio Jackson DO [address] [facility] [place] [address] Social History Tobacco Use Types Packs/Day [...] AM EDT Office Visit SCOTTIE MACKENZIE [address] [place] [address] Dacia Shah, JOSE L [address] [facility] [place] [address] 03/12/2025 11:20 AM EDT Office Visit SCOTTIE MACKENZIE [address] [place] [address] Mariam Finch PA [address] [place] [address] documented as of this encounter Procedures Procedure Name Priority Date/Time Associated Diagnosis Comments TBH PREG QUANT HCG Routine 01/31/2025 10 :47 AM EDT CCF CMP (CMP) (FOR REMOTE [facility] USE) Routine 01/31/2025 10:47 AM EDT ALL CBC WITH AUTO DIFF Routine 01/31/2025 10:47 AM EDT documented in this encounter Results * TBH PREG QUANT HCG (01/31/2025 10:47 AM EDT) HCG QUANTITATIVE <1 mIU/mL TBH Comment: 5-50 0.2-1 WEEK 50-500 1-2 WEEKS 100-5,000 2-3 WEEKS 500-10,000 3-4 WEEKS 1,000-50,000 4-5 WEEKS 10,000-100,000 5-6 WEEKS 15,000-200,000 6-8 WEEKS 10,000-100,000 2-3 MONTHS 01/31/2025 10:4 7 AM EDT 01/31/2025 10:49 AM EDT Narrative CLINISYNC - 01/31/2025 11:46 AM EDT us Octavio Renetta DO CLINISYNC Final Result CLINISYNC TB * (ABNORMAL) CCF CMP (CMP) (FOR REMOTE [facility] USE) (01/31/2025 10:47 AM EDT) SODIUM 140 136 - 145 mmol/L TBH POTASSIUM 3.7 3.5 - 5.1 mmol/L TBH CHLORIDE 106 98 - 107 mmol/L TBH CARBON DIOXIDE 25.4 21.0 - 32.0 mmol/L TBH ANION GAP 12.3 TBH GLUCOSE 100 74 - 106 mg/dL TBH BLOOD UREA NITROGEN 11.0 7.0 - 18.0 mg/dL TBH CREATININE 0.40(L) 0.55 - 1.02 mg/dL TBH TBH EGFR-AF [place] >60 >=60 mL/min/1. 73m 2 TBH TBH EGFR-NON AF [place] >60 >=60 mL/min/1. 73m 2 TBH BUN [...] CLINISYNC - 01/31/2025 11:46 AM EDT us Octavio Renetta DO CLINISYNC Final Result [facility] * (ABNORMAL) ALL CBC WITH AUTO DIFF (01/31/2025 10:47 AM EDT) Pathologist [facility] TB WBC 6.1 4.0 - 11.0 10 3/uL [...] Narrative CLINISYNC - 01/31/2025 11:00 AM EDT us Octavio Renetta DO CLINISYNC Final [facility] documented in this encounter Visit Diagnoses Not on filedocumented in this encounter Care Teams Cork Floor Installer Relationship Specialty Start Date End Date Scott Troy MD [address] [facility] 110 [place] [address] PCP - General Internal Medicine 12/19/23 Sammie Diaz, JOSEL [address] [place] [address] [place] [address] Nurse Practitioner Family Medicine 11/25/23 documented as of this encounter
--- OUTSIDE RECORDS SUMMARY | 2025-01-31 12:15 | XMS_ITS | Clinical Summary ---
Author Organization [facility] Address [address] [place], [place] [id number] Care Team Providers Care Day Camp Counselor Name Role Phone Unavailable Primary Care Provider [...] N ot on file 07/23/2022 Data from: [email or web address] Last address used for calculation [address] [place] [address] 07/23/2022 Comments No Sex and Gender Information [...] Total Negative Negative 09/27/2014 2:15 AM EDT [facility] Hep C Antibody [place] Negative Negative 09/27/2014 2:15 AM EDT [facility] HBsAg Negative Negative 09/27/2014 2:15 AM EDT [facility] Hep B Surface Ab, Qual Negative Negative 09/27/2014 2:15 AM EDT [facility] Comment:NEGATIVE Blood specimen (specimen) BLOOD SPECIMEN / Unknown 09/26/2014 10:10 AM EDT 09/26/2014 10:12 AM EDT Ryan Guy LABORATORY Final Result [facility] [address] [place] [address] from Last 3 Months or Most Recently Relevant to Health Maintenance
[2025-01-31] MEDS: FAMOTIDINE/PF 20 MG/2 ML VIAL IV (12:34)
[2025-01-31] MEDS: SCOPOLAMINE 1 MG/3 DAYS TRANSDERM PATCH 1 PATCH TD (12:35)
[2025-01-31] MEDS: CEFAZOLIN SODIUM 1 GM/50 ML D5W PREMIX IV (12:39)
--- NOTE | 2025-01-31 15:13 | P.ON_ITS ---
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 PROCEDURE: Patient was taken back to the Operating Room where she was given general anesthesia without difficulty. She was then prepped and draped in the normal sterile fashion. A Pfannenstiel skin incision was then made 2 cm above the symphysis and pubis and carried down to underlying rectus fascia using a Bovie. The fascia was incised in the midline and extended bilaterally using Larson scissors. Two Beltran clamps were placed on the superior aspect of the fascia and dissected off the underlying rectus muscle. The same was performed on the inferior aspect as well. The muscle was then in the midline. The peritoneum was identified and entered bluntly. Peritoneum was then extended superiorly and inferiorly with good visualization of the bladder. An O'Exluhicl-C-Uglqnk retractor was placed into the patient's abdomen. The bowel was packed away with moist laparotomy sponges and the bladder blade was inserted. A Leahey tenaculum was placed on the patient's uterus and used for retraction. LigaSure apparatus was then used to come across the mesosalpingx from the fimbriated end to the uteroovarian ligament on the patient's right side which was then cauterized and transected. This was carried down serially through the broad ligament and across the round ligament. The bladder flap was then crea shawanda using the Metzenbaum scissors, and the bladder was easily dissected off the patient's lower uterine segment. A curved Joseline was placed across the uterine artery on the right side which was clamped, transected, and suture ligated using #0 Monocryl. This was performed on the contralateral side as well. due to amount of adhesion on the posterior culdesac it was decided that a supracervical hyste rectomy was in the best interest of the patient. This was performed on the contralateral side as well. The uterus was then amputated using Leonardo scissors. The patient's cervical stump was closed using #0 PDS in a running locked fashion Excellent hemostasis was assured. The patient's abdomen wascopiously irrigated using warm saline. Cystoscopy was performed. Bladder was intact. Efflux was noted from both ostia. Cystoscope was removed.After excellent hemostasis was assured, all instruments were removed from the patient's abdomen. The patient's peritoneum was closed using 3-0 Vicryl in a running fashion. The patient's fascia was closed using #0 Vicryl in a running fashion. The patient's skin was closed using 4-0 vicryl on a michael needle. The patient tolerated the procedure well. Sponge, lap, and needle counts were correct times two. Patient taken to the Recovery Room in stable condition Anesthesia: DOROTHY Surgeon: Octavio Jackson Fur Dry Cleaner: Vanita Hager Estimated blood loss (mL): 350 Pathology: other (uterus and tubes) Condition: stable Disposition: floor Urinary Catheter Management Urinary Catheter Management Urethral: Cath placed during this visit: no
[2025-01-31] MEDS: KETOROLAC TROMETHAMINE 30 MG/ML VIAL IVP (16:58)
[2025-01-31] MEDS: CEFAZOLIN SODIUM/DEXTROSE,ISO 2 GM/50 ML PIGGYBACK IV (20:04)
[2025-01-31] MEDS: PROMETHAZINE HCL 25 MG in 0.9 % SODIUM CHLORIDE 50 ML 204 MG IV (23:08)
--- NOTE | 2025-01-31 23:20 | PC.NURSE ---
Patient had several emesis. IV meds given. Patient walked short distance in hallway and tolerated well
[2025-01-31 23:31] LABS: Hematocrit 32.6 % (36.0-48.0); Hemoglobin 11.0 g/dL (12.0-16.0); Immature Granulocytes Abs Auto 0.04 10^3/uL (0.00-0.03); Immature Granulocytes Pct Auto 0.3 % (0.0-0.5); Lymphocytes Absolute Auto 0.9 10^3/uL (1.2-3.8); Mean Corpuscular HGB Conc 33.7 g/dL (29.9-35.2); Mean Corpuscular Hemoglobin 26.5 pg (26.7-34.0); Mean Corpuscular Volume 78.6 fL (81.0-99.0); Platelet Count 201 10^3/uL (150-450); Red Blood Count 4.15 10^6/uL (4.20-5.40); White Blood Count 11.4 10^3/uL (4.0-11.0)
[2025-01-31] MEDS: TEMAZEPAM 15 MG CAPSULE 30 MG PO (23:47)
[2025-01-31] MEDS: SIMETHICONE 80 MG TAB.CHEW PO (23:47)
[2025-02-01] VITALS (8 sets, daily range): BP systolic 116–139; BP diastolic 76–82; PULSE 49–70; TEMP 36.8–37.1; O2SAT 97–98
[2025-02-01] MEDS: CEFAZOLIN SODIUM/DEXTROSE,ISO 2 GM/50 ML PIGGYBACK IV (00:22)
[2025-02-01] MEDS: MAGNESIUM HYDROXIDE 2,400 MG/10 ML ORAL.SUSP 2400 MG PO (08:22)
--- OUTSIDE RECORDS SUMMARY | 2025-02-01 08:59 | XMS_ITS | Clinical Summary ---
Author Organization [facility] Address [id number] [place] [address] Care Team Providers Care Card Reader Name Role Phone Unavailable Primary Care Provider [...]
--- OUTSIDE RECORDS SUMMARY | 2025-02-01 08:59 | XMS_ITS | Encounter Summary ---
Author Organization [facility] Address [address] [place] [address] Care Team Providers Care Exhaust Emissions Inspector Name Role Phone Sammie Diaz MANAGER MAC Unavailable Scott Troy MD Primary Care Provider [phone] Sammie Diaz MANAGER MAC Unavailable Encounter Details Date Type Department Care Team (Late Contact Info) Description 10/19/2023 Abstract SCOTTIE Bello [facility] [address] [facility] 110 [place] [address] Unallocated, [facility] ProviderMD [address] [place] [address] Social History Tobacco Use Types Packs/Day Years Used Date Smoking Tobacco: Never Assessed Comments Unknown Sex and Gender Information Value Date Recorded Sex Assigned at Not on file Legal Sex Female 10:52 AM EDT Gender Identity Not on file Sexual Orientation Not on file documented as of this encounter Plan of Treatment Upcoming Encounters Date Type Department Care Team ([facility] Contact Info) Description 02/07/2025 11:10 AM EDT Office Visit SCOTTIE MACKENZIE [address] [facility] [place] [address] Dacia Shah, JOSE L [address] [facility] [place] [address] 03/12/2025 11:20 AM EDT Office Visit SCOTTIE MACKENZIE [address] [place] [address] Mariam Finch PA [address] [place] [address] [place] [address] documented as of this encounter Visit Diagnoses Not on filedocumented in this encounter Care Teams Exhaust Emissions Inspector Relationship Specialty Start Date End Date Scott Troy MD [address] [facility] 110 [place] [address] PCP - General Internal Medicine 12/19/23 Sammie Diaz, MANAGER MAC [address] [facility] 110 [place] [address] PCP - [facility] 12/26/23 Sammie Diaz, MANAGER MAC [address] [facility] 110 [place] [address] Nurse Practitioner Family Medicine 11/25/23 documented as of this encounter
--- OUTSIDE RECORDS SUMMARY | 2025-02-01 08:59 | XMS_ITS | Encounter Summary ---
Author Organization [facility] Address [address] [place] [address] Care Team Providers Care Pipe Smoker Machine Operator Name Role Phone Joe Sammie Sheets PYTHON DEVELOPER Unavailable Scott Troy MD Primary Care Provider [phone] Encounter Details Date Type Department Care Team (Late Contact Info) Description 01/28/2025 Orders Only NOMTj MACKENZIE [address] [place] [address] Octavio Jackson DO [address] [facility] [address] [place], [place] [id number] Irregular periods/menstrual cycles; Idiopathic thrombocytopenic purpura (HCC); [...] Visit NOMS Prabhakar MACKENZIE [address] [place] [address] Dacia Shah NP [address] [facility] [place] [address] 03/12/2025 11:20 AM EDT Office Visit NOMS Prabhakar MACKENZIE [address] [facility] [place] [address] Mariam Finch PA [address] [facility] [place] [address] Scheduled Orders Name Type Priority Associated [...] deficiency documented in this encounter Care Teams Pipe Smoker Machine Operator Relationship Specialty Start Date End Date Scott Troy MD [address] [place] [facility] 110 [place] [address] PCP - General Internal Medicine 12/19/23 Sammie Diaz, JOSE L [address] [facility] 110 [place] [address] Nurse Practitioner Family Medicine 11/25/23 documented as of this encounter
--- OUTSIDE RECORDS SUMMARY | 2025-02-01 08:59 | XMS_ITS | Encounter Summary ---
Author Organization [facility] Address [address] [place] [address] Care Team Providers Care Siphon Operator Name Role Phone Sammie Diaz CUSTOMER SERVICE ATTENDANT Unavailable Scott Troy MD Primary Care Provider [phone] Encounter Details Date Type Department Care Team (Late Contact Info) Description 01/25/2025 Clinisync Result Encounter NOMS External Department Unsolicited Octavio Jackson DO [address] [facility] [place] [address] Social History Tobacco Use Types Packs/Day [...] AM EDT Office Visit SCOTTIE MACKENZIE [address] [facility] [place] [address] Dacia Shah, JOSE L [address] [facility] [place] [address] 03/12/2025 11:20 AM EDT Office Visit SCOTTIE MACKENZIE [address] [facility] [place] [address] Mariam Finch PA [address] [place] [address] documented as of this encounter Procedures Procedure [...] CLINISYNC - 01/31/2025 8:53 AM EDT [facility] , us Octavio Renetta DO CLINISYNC [...] on 01/25/25 Reason: ANTIBODY SCREEN POSITIVE [facility] , Octavio Renetta DO CLINISYNC Final [facility] * CCF APTT (01/25/2025 2:35 PM EDT) PARTIAL THROMBOPLASTIN TIME 28.4 22.3 - 36.2 sec TBH 01/25/2025 2:35 PM EDT 01/25/2025 2:40 PM EDT Narrative CLINISYNC - 01/25/2025 3:23 PM EDT Octavio Renetta DO CLINISYNC Final Result [facility] * SRMCOH PROTHROMBIN TIME INR W/O COUM (01/25/2025 2:35 PM EDT) PROTHROMBIN TIME 10.9 9.0 - 11.6 sec TBH TBH INR 1.03 TBH Comment: DESIRED INR: 2.0-3.0 CONDITIONS NOT LISTED BELOW 2.5-3.5 FOR PROSTHETIC HEART VALVE REPLACEMENT 2.5-3.5 RECURRENT THROMBOSIS 01/25/2025 2:35 PM EDT 01/25/2025 2:40 PM EDT Narrative CLINISYNC - 01/25/2025 3:23 PM EDT [employer] DO CLINISYNC Final Result [facility] * (ABNORMAL) ALL BASIC METABOLIC PANEL (01/25/2025 [...] 0.55 - 1.02 mg/dL TBH TBH EGFR-AF [place] >60 >=60 mL/min/1.7 3m 2 TBH TBH EGFR-NON AF BUR[place] >60 >=60 mL/min/1.7 3m 2 TBH BUN CREATININE RATIO 33.3 TBH CALCIUM 8.5 8.5 - 10.1 mg/dL TBH 01/25/2025 2:35 PM EDT 01/25/2025 2:40 PM EDT Narrative CLINISYNC - 01/25/2025 3:11 PM EDT Octavio Renetta DO CLINISYNC Final Result Performing Organization Address City/[facility]/ZIP Co de Phone Number [facility] * HMHP LIVER PANEL (01/25/2025 2:35 PM [...] EDT Octavio Renetta DO CL[facility]ISYNC [facility] * (ABNORMAL) ALL CBC WITH [...] on filedocumented in this encounter Care Teams Siphon Operator Relationship Specialty Start Date End Date Scott Troy MD [address] [facility] 110 [place] [address] PCP - General Internal Medicine 12/19/23 Sammie Diaz, JOSE L [address] [facility] 110 [place] [address] Nurse Practitioner Family Medicine 11/25/23 documented as of this encounter
--- OUTSIDE RECORDS SUMMARY | 2025-02-01 09:00 | XMS_ITS | Clinical Summary ---
Author Organization [facility] Address [address] [place] [address] Care Team Providers Care Lavatory Attendant Name Role Phone Sammie Diaz HEMATOLOGY TECHNICIAN Unavailable Scott Troy MD Primary Care Provider Allergies No known active allergies Medications ibuprofen [...] DO 01/28/2025 [place] [address] Lexx Jackson DO Irregular periods/menstrual cycles; Idiopathic thrombocytopenic purpura (HCC); Vitamin D deficiency 01/25/2025 Clinisync Result Encounter [facility]S External Department Unsolicited Lexx Jackson DO 01/01/2025 8:40 AM [place] [id number] Lexx Jackson DO Pre-op examination; Dysmenorrhea; Menorrhagia with regular cycle; Pelvic pain; Intramural and submucous leiomyoma of uterus; Dyspareunia in female 11/20/2024 8:50 AM EDT [place] [id number] Lexx Jackson DO Postoperative follow-up 11/20/2024 Bamboo flowsheet [facility] [address] [facility] [place] [address] Lexx Jackson, 11/16/2024 Abstract [facility] [place] [address] [place] [address] Lexx Jackson, 11/16/2024 Clinisync Result Encounter NOMS [...] AM EDT Office Visit SCOTTIE MACKENZIE [address] [facility] [place] [address] Dacia Shah, JOSE L [address] [facility] [place] [address] 03/12/2025 11:20 AM EDT Office Visit SCOTTIE MACKENZIE [address] [facility] [place] [address] Mariam Finch PA [address] [facility] [place] [address] Health Maintenance Due Date Last Done Comments Pap Smear 2001 Cervical Cancer Screening 2010 HPV/Cotest 2010 Mammogram 11/10/2024 11/11/2023 Influenza Vaccine (#1) 2025 Procedures Procedure Name Priority Date/Time Associated Diagnosis Comments ALL CBC WITH AUTO DIFF Routine 5 11:07 PM EDT TBH PREG QUANT HCG Routine 01/31/2025 10 :47 AM EDT [facility] CMP (CMP) (FOR REMOTE [facility] USE) Routine 01/31/2025 10:47 AM EDT ALL CBC WITH AUTO DIFF Routine 5 10:47 AM EDT HMHP ANTIBODY ID Routine [...] Recently Relevant to Health Maintenance Results * (ABNORMAL) ALL CBC WITH AUTO DIFF (01/31/2025 11:07 PM EDT) Only the most recent of4 resultswithin the time period is included. TBH WBC 11.4(H) 4.0 - 11.0 10 3/uL TBH TBH RBC 4.15(L) 4.20 - 5.40 10 6/uL TBH TBH HGB 11.0(L) 12.0 - 16.0 g/dL TBH TBH HCT 32.6(L) 36.0 - 48.0 % TBH TBH MCV 78.6(L) 81.0 - 99.0 fL TBH TBH MCH 26.5(L) 26.7 - 34.0 pg TBH TBH MCHC 33.7 29.9 - 35.2 g/dL TBH TBH RDW 16.6(H) 11.0 - 15.0 % TBH TBH PLT 201 150 - 450 10 3/uL TBH TBH MPV 11.4 9.5 - 13.5 fL TBH NEUTROPHILS PERCENT AUTO 87.8(H) 43.0 - 75.0 % TBH LYMPHOCYTES PERCENT AUTO 7.7(L) 20.5 - 60.0 % TBH MONOCYTES PERCENT AUTO 4.1 1.7 - 12.0 % TBH TBH EO % 0.0(L) 0.9 - 7.0 % TBH BASOPHILS PERCENT AUTO 0.1(L) 0.2 - 2.0 % TBH IMMATURE GRANULOCYTES PCT AUTO 0.3 0.0 - 0.5 % TBH NEUTROPHILS ABSOLUTE AUTO 10.0(H) 1.4 - 6.5 10 3/uL TBH LYMPHOCYTES ABSOLUTE AUTO 0.9(L) 1.2 - 3.8 10 3/uL TBH MONOCYTES ABSOLUTE AUTO 0.5 0.3 - 0.8 10 3/uL TBH TBH EO # 0.0 0.0 - 0.7 10 3/uL TBH BASOPHILS ABSOLUTE AUTO 0.0 0.0 - 0.1 10 3/uL TBH IMMATURE GRANULOCYTES ABS AUTO 0.04(H) 0.00 - 0.03 10 3/uL TBH 01/31/2025 11:0 7 PM EDT 01/31/2025 11:26 PM EDT Narrative CLINISYNC - 01/31/2025 11:31 PM EDT Lexx Renetta DO [facility]INIS[facility]NC Final [facility] * TBH PREG QUANT HCG (01/31/2025 10:47 [...] us Lexx Renetta DO CLINISYNC Final Result MEET TB * (ABNORMAL) [facility] CMP (CMP) (FOR REMOTE [facility] USE) (01/31/2025 10:47 AM EDT) SODIUM 140 136 - 145 mmol/L TBH POTASSIUM 3.7 3.5 - 5.1 mmol/L TBH CHLORIDE 106 98 - 107 mmol/L TBH CARBON DIOXIDE 25.4 21.0 - 32.0 mmol/L TBH ANION GAP 12.3 TBH GLUCOSE 100 74 - 106 mg/dL TBH BLOOD UREA NITROGEN 11.0 7.0 - 18.0 mg/dL TBH CREATININE 0.40(L) 0.55 - 1.02 mg/dL TBH TBH EGFR-AF GAMBIAN >60 >=60 mL/min/1. 73m 2 TBH TBH EGFR-NON AF GAMBIAN >60 >=60 mL/min/1. 73m 2 TBH BUN [...] - 01/31/2025 11:46 AM EDT us Lexx Springero DO CLINISYNC Final Result [facility]ET [facility] * SRMCOH PROTHROMBIN TIME INR W/O COUM (01/25/2025 2:35 PM EDT) PROTHROMBIN TIME 10.9 9.0 - 11.6 sec TBH TBH INR 1.03 TB Comment: DESIRED INR: 2.0-3.0 CONDITIONS NOT LISTED BELOW 2.5-3.5 FOR PROSTHETIC HEART VALVE REPLACEMENT 2.5-3.5 RECURRENT THROMBOSIS 01/25/2025 2:35 PM EDT 01/25/2025 2:40 PM EDT Narrative CLINISYNC - 01/25/2025 3:23 PM EDT us Lexx Renetta DO CLINISYNC Final Result MEET [facility] * HMHP LIVER PANEL (01/25/2025 2:35 PM [...] - 5.0 g/dL TBH GLOBULIN 3.4 g/dL TB ALBUMIN GLOBULIN RATIO 1.1 TB 01/25/2025 2:35 PM EDT 01/25/2025 2:40 PM EDT Narrative CLINISYNC - 01/25/2025 3:11 PM EDT us Lexx Renetta DO CLINISYNC Final Result [facility] * [facility] ANTIBODY ID (01/25/2025 2:35 PM EDT) TB ANTIBODY ID PANEL K [facility] Comment:PERFORMED BY [employer] 01/25/2025 2:35 PM EDT 01/25/2025 2:40 PM EDT Narrative CLINISYNC - 01/31/2025 8:53 AM EDT [facility] , Lexx Renetta DO CLINISYNC Final Result Performing Organization Address [facility]/ZIP Co de Phone Number [facility] * [facility]CF APTT (01/25/2025 2:35 PM EDT) PARTIAL THROMBOPLASTIN TIME 28.4 22.3 - 36.2 sec TBH 01/25/2025 2:35 PM EDT 01/25/2025 2:40 PM EDT Narrative CLINISYNC - 01/25/2025 3:23 PM EDT us Lexx Renetta DO CLINISYNC Final Result Performing Organization Address [facility] Co de Phone Number [facility] * ALL TYPE AND SCREEN (01/25/2025 2:35 PM EDT) BLOOD TYPE O Positive TBH ANTIBODY SCREEN POSITIVE TBH 01/25/2025 2:35 PM EDT 01/25/2025 2:40 PM EDT Narrative CLINISYNC - 01/31/2025 8:53 AM EDT Spec expiration changed by NSCHAFER on 01/25/25 Reason: SURGICAL EXTENSION Spec expiration changed by NSCHAFER on 01/25/25 Reason: ANTIBODY SCREEN POSITIVE [facility] , us Lexxmesfin Springero DO CLINISYNC Final Result Performing Organization Address [facility] Co de Phone Number [facility] * (ABNORMAL) ALL BASIC METABOLIC PANEL (01/25/2025 2:35 PM EDT) SODIUM 140 136 - 145 mmol/L TBH POTASSIUM 3.4(L) 3.5 - 5.1 mmol/L TBH CHLORIDE 105 98 - 107 mmol/L TBH CARBON DIOXIDE 23.8 21.0 - 32.0 mmol/L TBH ANION GAP 14.6 TBH GLUCOSE 93 74 - 106 mg/dL TB BLOOD UREA NITROGEN 16.0 7.0 - 18.0 mg/dL TB CREATININE 0.48(L) 0.55 - 1.02 mg/dL TBH TBH EGFR-AF GAMBIAN >60 >=60 mL/min/1.7 3m 2 TBH TBH EGFR-NON AF GAMBIAN >60 >=60 mL/min/1.7 3m 2 TBH BUN CREATININE RATIO 33.3 TBH CALCIUM 8.5 8.5 - 10.1 mg/dL TBH 01/25/2025 2:3 5 PM EDT 01/25/2025 2:40 PM EDT Narrative CLINISYNC - 01/25/2025 3:11 PM EDT us Lexx Jackson DO CLINISYNC Final Result CLINISYNH TB * XR CHEST 2V (11/02/2024 10:47 AM EDT) Anatomical Region Laterality Modality Other 11/02/2024 10:4 7 AM EDT Narrative 11/02/2024 10:49 [place] [address] XRay Report Signed Patient: JANA BARRAGAN MR#: [id number] : 1980 Acct:[id number] Age/Sex: 43 / F ADM Date: Loc: [facility] Attending Dr: Lexx Jackson D.O. Ordering Physician: Lexx Jackson D.O. Date of Service: 11/02/24 Procedure(s): XR chest 2V Accession Number(s): [id number] cc: Lexx Jackson D.O.; Sammie Diaz HEMATOLOGY TECHNICIAN [place] [id number] Patient Name: JANA BARRAGAN MRN: [id number] date: 1980 Sex: F Assigned Patient [facility] Current Patient Location: [facility] Accession/Order Number: [id number] Exam Date: 11/02/2024 10:47 Report Date: 11/02/2024 10:47 At the request of: LEXX JACKSON DO Procedure: XR chest 2V Chest 2 views CLINICAL HISTORY: Preop exam COMPARISON: None FINDINGS: Heart normal size. Lungs are clear. No free air. XR/XR chest 2V IMPRESSION: NO ACUTE CARDIOPULMONARY ABNORMALITY. Impression dictated by: Raul Rojas Jr., D.O. 11/02/2024 10:47 AM Dictation Location: RADIO-PC-23 Electronically authenticated by: [id number] Y Date: 11/02/2024 10:47 Dictated By: Raul Rojas M.D. Signed By: 11/02/24 1049 DD/ 1047 TD/TT: Senior Contract Specialist: Procedure Note Radiology, Radiologist, MD - 11/02/2024 [place] [address] XRay Report Signed Patient: JANA BARRAGAN MMR#: [id number] : 1980Acct:[id number] Age/Sex: 43 / FADM Date: Loc: [facility] Attending Dr: Lexx Jackson D.O. Ordering Physician: Lexx Jackson D.O. Date of Service: 11/02/24 Procedure(s): XR chest 2V Accession Number(s): [id number] cc: Lexx Jackson D.O.; Sammie Diaz HEMATOLOGY TECHNICIAN The [place] [id number] Patient Name: JANA BARRAGAN MRN: [id number] date: 1980 Sex: F Assigned Patient Location: [facility] Current Patient Location: [facility] Accession/Order Number: [id number] Exam Date: 11/02/2024 10:47 Report Date: 11/02/2024 10:47 At the request of: LEXX JACKSON DO Procedure: XR chest 2V Chest 2 views CLINICAL HISTORY: Preop exam COMPARISON: None FINDINGS: Heart normal size. Lungs are clear. No free air. XR/XR chest 2V IMPRESSION: NO ACUTE CARDIOPULMONARY ABNORMALITY. Impression dictated by: Raul Rojas Jr., D.O. 11/02/2024 10:47 AM Dictation Location: RADIO-PC-23 Electronically authenticated by: [id number] Y Date: 0:47 Dictated By: Raul Rojas M.D. Signed By:11/02/24 1049 DD/ 1047 TD/TT: Senior Contract Specialist: Lexx Jackson [facility] Final Result * Bilateral screening mammogram [...] IS VERY IMPORTANT TO YOUR HEALTH. THE [employer] GUIDELINES RECOMMEND THAT WOMEN 40 [...] IS VERY IMPORTANT TO YOUR HEALTH. THE [employer]IETYGUIDELINES RECOMMEND THAT WOMEN 40 YEARS [...] Most Recently Relevant to Health Maintenance Insurance [facility] Care Teams Lavatory Attendant Relationship Specialty Start Date End Date Scott Troy MD [address] [facility] [address] [place] [address] PCP - General Internal Medicine 12/19/23 Sammie Diaz, HEMATOLOGY TECHNICIAN [address] [facility] 110 [place] [address] Nurse Practitioner Family Medicine 11/25/23
--- OUTSIDE RECORDS SUMMARY | 2025-02-01 09:00 | XMS_ITS | Encounter Summary ---
Author Organization [facility] Address [address] [place] [address] Care Team Providers Care Monorail Charger Operator Name Role Phone Sammie Diaz IMPORT COORDINATOR Unavailable Scott Troy MD Primary Care Provider [phone] Encounter Details Date Type Department Care Team (Late Contact Info) Description 11/16/2024 Abstract SCOTTIE MACKENZIE [address] [place] [address] Octavio Jackson DO [address] [facility] [address] [place], [facility]11 Social History Tobacco Use Types Packs/Day Years [...] AM EDT Office Visit SCOTTIE [facility]ACKENZIE [address] [place] [address] Dacia Shah NP [address] [place] [address] 03/12/2025 11:20 AM EDT Office Visit SCOTTIE MACKENZIE [address] [facility] [address] Mariam Finch PA [address] [place] [address] [place] [address] documented as of this encounter Visit Diagnoses Not on filedocumented in this encounter Care Teams Monorail Charger Operator Relationship Specialty Start Date End Date Scott Troy MD [address] [place] [facility] 110 [place] [address] PCP - General Internal Medicine 12/19/23 Sammie Diaz, JOSE L 112 [facility] 110 [place] [address] Nurse Practitioner Family Medicine 11/25/23 documented as of this encounter
--- OUTSIDE RECORDS SUMMARY | 2025-02-01 09:00 | XMS_ITS | Encounter Summary ---
Author Organization [facility] Address [address] [place] [address] Care Team Providers Care Guest Relations Coordinator Name Role Phone Sammie Diaz LESSON INSTRUCTOR Unavailable Scott Troy MD Primary Care Provider [phone] Encounter Details Date Type Department Care Team (Late Contact Info) Description 01/31/2025 Clinisync Result Encounter NOMS External Department Unsolicited Octavio Jackson DO [address] [facility] [place] [address] Social History Tobacco Use Types Packs/Day [...] AM EDT Office Visit SCOTTIE MACKENZIE [address] [facility] [place] [address] Dacia Shah, JOSE L [address] [facility] [place] [address] 03/12/2025 11:20 AM EDT Office Visit SCOTTIE MACKENZIE [address] [facility] [place] [address] Mariam Finch PA [address] [place] [address] documented as of this encounter Procedures Procedure Name Priority Date/Time Associated Diagnosis Comments ALL CBC WITH AUTO DIFF Routine 01/31/2025 11:07 PM EDT TBH PREG QUANT HCG Routine 01/31/2025 10 :47 AM EDT [facility] CMP (CMP) (FOR [facility]OTE [facility] USE) Routine 01/31/2025 10:47 AM EDT ALL CBC WITH AUTO DIFF Routine 01/31/2025 10:47 AM EDT documented in this encounter Results * (ABNORMAL) ALL CBC WITH AUTO DIFF (01/31/2025 11:07 PM EDT) TBH WBC 11.4(H) 4.0 - 11.0 10 [...] Narrative CLINISYNC - 01/31/2025 11:31 PM EDT Octavio Renetta DO CLINISYSC Final Result Performing Organization Address City/[facility]/ZIP Co de Phone Number CLINISYSC TB * TBH PREG QUANT HCG (01/31/2025 10:47 AM EDT) HCG QUANTITATIVE <1 mIU/mL TBH Comment: 5-50 0.2-1 WEEK 50-500 1-2 WEEKS 100-5,000 2-3 WEEKS 500-10,000 3-4 WEEKS 1,000-50,000 4-5 WEEKS 10,000-100,000 5-6 WEEKS 15,000-200,000 6-8 WEEKS 10,000-100,000 2-3 MONTHS 01/31/2025 10:4 7 AM EDT 01/31/2025 10:49 AM EDT Narrative CLINISYNC - 01/31/2025 11:46 AM EDT Octavio Renetta DO [facility] Final Result Performing Organization Address City/[facility]/ZIP Co de Phone Number CLINISYSC TB * (ABNORMAL) [facility]CF CMP (CMP) (FOR REMOTE [facility] USE) (01/31/2025 10:47 AM EDT) SODIUM 140 136 - 145 mmol/L TBH POTASSIUM 3.7 3.5 - 5.1 mmol/L TBH CHLORIDE 106 98 - 107 mmol/L TBH CARBON DIOXIDE 25.4 21.0 - 32.0 mmol/L TBH ANION GAP 12.3 TBH GLUCOSE 100 74 - 106 mg/dL TBH BLOOD UREA NITROGEN 11.0 7.0 - 18.0 mg/dL TBH CREATININE 0.40(L) 0.55 - 1.02 mg/dL TBH TBH EGFR-AF PARAGUAYAN >60 >=60 mL/min/1. 73m 2 TBH TBH EGFR-NON AF PARAGUAYAN >60 >=60 mL/min/1. 73m 2 TBH BUN [...] - 01/31/2025 11:46 AM EDT us Octavio Jackson DO CLINISYNC Final [facility] * (ABNORMAL) ALL CBC WITH AUTO DIFF (01/31/2025 10:47 AM EDT) TBH WBC 6.1 4.0 - 11.0 10 [...] Narrative CLINISYNC - 01/31/2025 11:00 AM EDT Octavio Renetta DO CLINISYNC Final Result CLINISYNC TBH documented in this encounter Visit Diagnoses Not on filedocumented in this encounter Care Teams Guest Relations Coordinator Relationship Specialty Start Date End Date Scott Troy MD [address] [place] [facility] 110 [place] [address] PCP - General Internal Medicine 12/19/23 Sammie Diaz, JOSE L [address] [facility] [facility] 110 [place] [address] Nurse Practitioner Family Medicine 11/25/23 documented as of this encounter
--- OUTSIDE RECORDS SUMMARY | 2025-02-01 09:00 | XMS_ITS | Clinical Summary ---
Author Organization [facility] Address [address] [place], [place] [address] Care Team Providers Care Transition Teacher Name Role Phone Unavailable Primary Care [...] N ot on file 07/23/2022 Data from: [email or web address] Last address used for calculation [address] [place] [address] 07/23/2022 Comments No Sex and Gender Information [...] Total Negative Negative 09/27/2014 2:15 AM EDT [facility] Hep C Antibody IA Negative Negative 09/27/2014 2:15 AM EDT [facility] HBsAg Negative Negative 09/27/2014 2:15 AM EDT [facility] Hep B Surface Ab, Qual Negative Negative 09/27/2014 2:15 AM EDT [facility] Comment:NEGATIVE Blood specimen (specimen) BLOOD SPECIMEN / Unknown 09/26/2014 10:10 AM EDT 09/26/2014 10:12 AM EDT Ryan Guy LABORATORY Final Result [facility] [address] [place] [address] from Last 3 Months or Most Recently Relevant to Health Maintenance
[2025-02-01] MEDS: CALCIUM CARBONATE 500 MG (200MG ELEMENTAL) TAB CHEW PO (10:28)
[2025-02-01] MEDS: PANTOPRAZOLE SODIUM 40 MG TABLET.DR PO (10:28)
--- NOTE | 2025-02-01 11:02 | PM.GYNPN2 ---
IT ARCHITECTURE CONSULTANT - PN: Subj Post-Op Subjective: patient reports feeling better, patient has no complaints, patient desires discharge, pain is well controlled and patient is tolerating oral intake Exam Constitutional Vital Signs, click to edit/add: Last Vital Signs Temp 98.2 F 02/01/25 08:18 Pulse 53 L 02/01/25 10:00 Resp 18 02/01/25 08:18 BP 116/76 02/01/25 08:18 Pulse Ox 98 02/01/25 08:18 O2 Del Method Room Air 02/01/25 08:18 Documenting provider has reviewed patient's vital signs: yes Common normals: no apparent distress Respiratory Common normals: normal respiratory effort and clear to auscultation bilaterally Cardio Common normals: regular rate and regular rhythm GI Common normals: Normal to inspection, nondistended, normoactive bowel sounds present Extremity Common normals: normal to inspection, no clubbing, cyanosis or edema and no calf tenderness Results Labs Labs: Short CBC 01/31/25 Range/Units 23:07 WBC 11.4 H (4.0-11.0) 10^3/uL Hgb 11.0 L (12.0-16.0) g/dL Hct 32.6 L (36.0-48.0) % Plt Count 201 (150-450) 10^3/uL BMP 01/31/25 10:47 Sodium 140 Potassium 3.7 Chloride 106 Carbon Dioxide 25.4 BUN 11.0 Creatinine 0.40 L Glucose 100 Calcium 8.9 Liver Function 01/31/25 Range/Units 10:47 Total Bilirubin 0.4 (0.2-1.0) mg/dL AST 13 L (15-37) U/L ALT 19 (14-59) U/L Alkaline Phosphatase 78 (46-116) U/L Albumin 3.6 (3.4-5.0) g/dL IT ARCHITECTURE CONSULTANT - A/P Postoperative Procedures: Procedures Operation Date: 01/31/25 12:30 Actual Procedure Side Surgeon p supracervical hysterectomy, bilateral salpingectomy, Cystoscopy Not Applicable Octavio Jackson DO Postoperative day: 1 Postoperative status IT ARCHITECTURE CONSULTANT: doing well Post-operative plan IT ARCHITECTURE CONSULTANT: routine post-op care, ambulate, advance diet and discharge Fall Risk Details King fall scale risk level: Low Fall Risk Current medications: Current Medications Docusate Sodium (Docusate Sodium 100 Mg Capsule) 100 mg PO BID PRN PRN Reason: Constipation Hydromorphone HCl (Hydromorphone Hcl 0.5 Mg/0.5 Ml Syringe) 0.5 mg IV Q3H PRN PRN Reason: Pain Scale 7-10 Lactated Ringer's (Lactated Ringers) 1,000 mls @ 50 mls/hr IV .Q20H KERLINE Last Admin: 01/31/25 16:12 Dose: 50 mls/hr Promethazine HCl 25 mg/ Sodium (Chloride) 51 mls @ 204 mls/hr IV Q6H PRN PRN Reason: Nausea And Vomiting Last Infusion: 01/31/25 23:34 Dose: Infused Ibuprofen (Ibuprofen 400 Mg Tablet) 800 mg PO Q6H PRN PRN Reason: Pain Ketorolac Tromethamine (Ketorolac Tromethamine 30 Mg/Ml Vial) 30 mg IVP Q6H PRN PRN Reason: Pain Last Admin: 01/31/25 16:58 Dose: 30 mg Ondansetron HCl (Ondansetron Pf 4 Mg/2 Ml Vial) 4 mg IV Q6H PRN PRN Reason: Nausea Last Admin: 01/31/25 18:06 Dose: 4 mg Oxycodone/Acetaminophen (Oxycodone Hcl/Acetaminophen 5mg/325mg) 2 tab PO Q6H PRN PRN Reason: Pain Simethicone (Simethicone 80 Mg Tab.Chew) 80 mg PO PCHS PRN PRN Reason: Abdominal Distention Last Admin: 01/31/25 23:47 Dose: 80 mg Temazepam (Temazepam 15 Mg Capsule) 30 mg PO QHS PRN PRN Reason: Sleep Last Admin: 01/31/25 23:47 Dose: 30 mg Time Spent With Patient Time: Total time spent is greater than 50% in coordination of care (as documented) at patient's floor/unit and/or counseling patient: Time with patient: less than 15 minutes Urinary Catheter Management Urinary Catheter Management Urethral: Cath placed during this visit: yes Urethral indwelling: No Insertion date: 01/31/25
--- NOTE | 2025-02-01 12:00 | DS_ITS ---
DISCHARGE DATE: ??02/01/2025 ? PRIMARY DIAGNOSES: 1.? Pelvic pain. 2.? Large uterine fibroid. 3.? Dysmenorrhea. 4.? Dyspareunia. 5.? Right ovarian adhesion to posterior cul-de-sac. ? PROCEDURE:? Supracervical abdominal hysterectomy and bilateral salpingectomy with cystoscopy. ? HOSPITAL COURSE:? As expected.? Please see chart for full details.? ? LABORATORY DATA:? Please see chart. ? COMPLICATIONS:? None. ? DISCHARGE CONDITION:? Stable. ? CONSULTATION:? Anesthesia. ? DISCHARGE INSTRUCTIONS: 1.? Diet:? Regular. 2.? Medications: a.? Percocet 5/325 one to two p.o. every 4-6 hours p.r.n. pain. b.? Motrin 800 one p.o. every 8 hours p.r.n. pain. 3.? Followup in one week. Restrictions:? Pelvic rest for 6 weeks.? No heavy lifting.? May drive when pain free and no longer on narcotics. [facility]
== END 2025-02-01 12:00 | disposition home or self-care (01) | DRG 742 ==
LOC: SURGOUT 02-01 08:56 → MS 02-01 08:56
PROVIDERS: Admitting Provider Obstetrics & Gynecology; PCP Nurse Practitioner Family; Visit Provider Obstetrics & Gynecology
PROC: 0UT90ZL Resection of Uterus, Supracervical, Open Approach (ICD-10-PCS; principal; 2025-01-31 12:30)
DX: D25.1 Intramural leiomyoma of uterus (principal); D69.3 Immune thrombocytopenic purpura; D25.0 Submucous leiomyoma of uterus; M32.9 Systemic lupus erythematosus, unspecified; Z82.3 Family history of stroke; Z82.49 Family history of ischemic heart disease and other diseases of the circulatory system
CPT/HCPCS: 36415; 80053; 84702; 85025; 86850; 86900; 86901; 86920; 86922; 88307; 93005; 94667; J0690; J1100; J1885; J2175; J2250; J2371; J2405; J2550; J2704; J3010; J3490

== ENCOUNTER 2025-05-06 09:38 | Emergency (ER) | payer BC, SELFPAY ==
[2025-05-06 10:05] VITALS: BP 132/83; PULSE 60; TEMP 36.9; O2SAT 98; BMI 28.3
[2025-05-06] MEDS: LIDOCAINE HCL 1%-EPINEPHRINE 1:100,000 20 ML MDV 10 ML INJ (10:25)
--- OUTSIDE RECORDS SUMMARY | 2025-05-06 10:27 | XMS_ITS | Clinical Summary ---
Author Organization [facility] Address [address] [place] [id number] Care Team Providers Care Jewelry Repairer Name Role Phone Unavailable Primary Care Provider Unavailabl e Allergies No known active allergies Medications MedicationSigDispense QuantityRefillsLast FilledStart DateEnd DateStatus ACETAMINOPHEN (TYLENOL 8 HOUR ORAL) Take by mouth.Active hydrOXYchloroQUINE (PLAQUENIL) 200 mg tablet Indications:Systemic lupus erythematosus, unspecified SLE type, unspecified organ involvement status (HCC)Take 1 tablet by mouth once daily. 90 tablet ctive Active Problems ProblemNoted DateDiagnosed DateLupus (systemic lupus erythematosus)11/02/2012 Idiopathic thrombocytopenic lhexook4406/22/2012 Family History Medical HistoryRelationCommentsNo Ocular DiseaseFatherNo Ocular DiseaseMother RelationStatusCommentsFatherMother Social History Tobacco UseTypesPacks/DayYears UsedDateSmoking Tobacco: FormerSmokeless Tobacco: NeverAlcohol UseStandard Drinks/WeekCommentsYes0 (1 standard drink = 0.6 oz pure alcohol)PHQ-2AnswerDate RecordedPHQ-2 wgozt060Area Deprivation Index AnswerDate RecordedNational Score (1-100), lower number is lower risk84 07/23/2022State Score (1-10), lower number is lower riskNot on file07/23/2022 Data from: https://www.neighborhoodatlas.medicine.[facility].edu/. Last address used for [address] [facility]3CommentsNoSex and Gender InformationValueDate RecordedSex Assigned at BirthNot on fileLegal SexFemale 05/28/2012 10:12 AM ESTGender IdentityNot on fileSexual OrientationNot on file Last Filed Vital Signs Vital SignReadingTime TakenCommentsBlood Hohxquju869/7106/12/2021 10:13 AM EST Oteme691306/12/2021 10:13 AM SZQHfoufljqzkt94.7 ??C (98.1 ??F)06/12/2021 10:13 AM ESTRespiratory Tadq720108/13/2020 10:13 AM ESTOxygen Yrjgwslwdo44%06/12/2021 10:13 AM ESTInhaled Oxygen Concentration--Ciefcd08.6 kg (151 lb 3.2 oz)06/12/2021 10:13 AM WZUTldfur116 cm (5' 2.99 )06/12/2021 10:13 AM ESTBody Mass Index26.79 06/12/2021 10:13 AM EST Plan of Treatment Health MaintenanceDue DateLast DoneCommentsAnxiety Fddinkcih34/05/1999Depression Kbvegqhuf85/05/1999HIV Ldiaaznna53/05/1999DTaP,Tdap,Td Vaccine (1 - Tdap) 11/30/1999Hepatitis B Vaccine (1 of 3 - 19+ 3-dose series)11/30/1999Cervical Cancer Wotaqhwsd07/05/2002HPV Vaccine (1 - 3-dose SCDM series)11/30/2007 Mammogram Mviyouwhp95/05/2021Covid-19 Vaccine ( - season)2025 Influenza Vaccine (#1)2025Hepatitis C MgomvluukWkrxazjax60/02/2015 Procedures Procedure NamePriorityDate/TimeAssociated DiagnosisCommentsHEP REMOTE PANEL BL Aojdjec9909/26/2014 10:10 AM EDT ITP (idiopathic thrombocytopenic purpura) Lupus (systemic lupus erythematosus) from Last 3 Months or Most Recently Relevant to Health Maintenance Results * HEP REMOTE PANEL BL (09/26/2014 10:10 AM EDT)ComponentValueRef RangeTest MethodAnalysis TimePerformed AtPathologist SignatureHep B Core Ab, Total EnytbkcsTeymvxyf74/03/2015 2:15 [facility] LABORATORYHep C Antibody PVUveprlorDkbzrvaf23/03/2015 2:15 [facility] VYSPKQMDSREQiTuIwbipzkdSnenmiwh74/03/2015 2:15 [facility]TC[facility] LABORATORYHep B Surface Ab, TkngYxrcibzyUsoqhbwm45/03/2015 2:15 AM EDT [facility] MAIN LABORATORYComment:NEGATIVESpecimen (Source)Anatomical Location / LateralityCollection Method / VolumeCollection TimeReceived Time Blood specimen (specimen)BLOOD SPECIMEN / Pkyukyn0009/26/2014 10:10 AM EDT 09/26/2014 10:12 AM EDT Narrative Authorizing ProviderResult TypeResult StatusJames E FanningLABORATORYFinal ResultPerforming OrganizationAddressCity/State/ZIP CodePhone Number [facility] [address] [place] [address] from Last 3 Months or Most Recently Relevant to Health Maintenance
--- OUTSIDE RECORDS SUMMARY | 2025-05-06 10:27 | XMS_ITS | Clinical Summary ---
Author Organization [facility] Address [address] [place] [address] Care Team Providers Care Silver Buffer Name Role Phone Sammie Diaz Kortney DREDGE CAPTAIN Unavailable Scott Troy MD Primary Care Provider [phone] Allergies No known active allergies Medications MedicationSigDispense QuantityRefillsLast FilledStart DateEnd DateStatus calcium carbonate EX (Tums Extra Strength) 750 MG chewable tablet Chew 750 mg DailyActive simethicone (Mylicon) 80 MG chewable tablet Chew 80 mg every 6 (six) hours if needed for flatulenceActive Active Problems ProblemNoted DateDiagnosed DateIrregular periods/menstrual kfhnzy8508/20/2024 Menorrhagia with irregular cycle08/20/2024Vitamin D odrmcbsroy61/26/2024 Overweight (BMI 25.0-29.9)02/20/2024ain of both gptbnu9602/20/2024Lupus (systemic lupus erythematosus)11/02/2012Idiopathic thrombocytopenic vttwrtw1806/22/2012 Encounters DateTypeDepartmentCare VqrlAejcieknkhs86/16/2025 11:20 AM EDTOffice Visit [facility] [address] [place] [address] Mariam Finch PA Postop check03/12/2025amboo flowsheet [facility] [address] [place] [address] Mariam Finch PA 5Abstract [facility] [place] [facility] [address] [place] [address] [place] [id number] Scott Troy MD 02/07/2025 11:10 AM EDTOffice Visit [facility] [address] [place] [address] Dacia Shah NP Postoperative /14/2025amboo flowsheet [facility] [address] [place] [address] Dacia Shah NP 02/04/2025bstract [facility] [address] [place] [address] Octavio Jackson DO from Last 3 Months Family History Medical HistoryRelationNameCommentsHypertensionFatherDiabetesMotherHeart attack MotherHeart diseaseMotherHistory of breast cancer with her siblings. HyperlipidemiaMotherHypertensionMotherStrokeMotherRelationNameStatusComments FatherMother Social History Tobacco UseTypesPacks/DayYears UsedDateSmoking Tobacco: NeverSmokeless Tobacco: NeverAlcohol UseStandard Drinks/WeekCommentsYes6 (1 standard drink = 0.6 oz pure alcohol)CommentsNoSex and Gender InformationValueDate RecordedSex Assigned at BirthNot on fileLegal RcgKfnwhe57/23/2024 10:52 AM EDTGender IdentityNot on fileSexual OrientationNot on file Last Filed Vital Signs Vital SignReadingTime TakenCommentsBlood Qaldwnpq927/6809 11:43 AM EDT Wbusy152802/20/2024 8:04 AM EDTTemperature--Respiratory Fdcx4746 8:04 AM EDTOxygen Gthlivfrvg82%02/20/2024 8:04 AM EDTInhaled Oxygen Concentration-- Htnnys18 kg (145 lb 6.4 oz)03/12/2025 11:43 AM OYLYvqfte923.9 cm (5' 1 ) 08/20/2024 1:15 PM ESTBody Mass Index27.47008/20/2024 1:15 PM EST Plan of Treatment Health MaintenanceDue DateLast DoneCommentsPap Smear2001Cervical Cancer Awhxpzpli86/05/2011HPV/Pgwhqv8011/29/20102504Rlwhrcewo77/17/202505/OVID-19 Vaccine ( season)2025Influenza Vaccine (#1)2025 Pneumococcal Vaccine: Pediatrics (0 to 5 Years) and At-Risk Patients (6 to 64 Years)Aged OutNo longer eligible based on patient's age to complete this topic Procedures Procedure NamePriorityDate/TimeAssociated DiagnosisCommentsBI MAMMOGRAM SCREENING TOMOSYNTHESIS IJFMTUJCMOmzntlj82/17/2024 10:13 AM EDT Breast cancer screening by mammogram from Last 3 Months or Most Recently Relevant to Health Maintenance Results * Bilateral screening mammogram with tomosynthesis (11/11/2023 10:13 AM EDT) Anatomical RegionLateralityModalityBreastBilateralMammographySpecimen (Source) Anatomical Location / LateralityCollection Method / VolumeCollection Time Received Time11/14/2023 6:55 PM EDT Impressions 11/15/2023 8:15 AM EDT BIRADS 2 - Benign Follow-up: ??Routine Screening Mamm COMMENT: ??Given dense breast tissue, recommend close correlation with self- breast and clinical exam findings. ??If any new symptoms or signs present clinically, recommend ultrasound to complement mammography. Board Certified Radiologists. ??Accredited by the ACR and FDA. MAMMOGRAPHY IS VERY IMPORTANT TO YOUR HEALTH. ??THE [place] [employer] GUIDELINES RECOMMEND THAT WOMEN 40 YEARS OF AGE AND OLDER SHOULD HAVE A MAMMOGRAM EVERY YEAR. A REMINDER LETTER WILL BE SENT AT THE APPROPRIATE TIME. ??THIS FACILITY UTILIZES A REMINDER SYSTEM TO ENSURE ALL PATIENTS RECEIVE REMINDER NOTIFICATIONS AT THE APPROPRIATE TIME BASED ON THE RECOMMENDATIONS OF THIS EXAM. THIS INCLUDES REMINDERS FOR ROUTINE SCREENING MAMMOGRAMS, DIAGNOSTIC MAMMOGRAMSIN WHICH THE PATIENT IS ASKED TO RETURN FOR ADDITIONAL VIEWS, OR OTHER BREAST IMAGING INTERVENTIONSWHEN APPROPRIATE. THE PATIENT WILL BE PLACED IN THE APPROPRIATE REMINDER SYSTEM INCLUDING A REMINDER AT THE APPROPRIATE TIME FOR ANY PENDING ADDITIONAL VIEWS. TRANSCRIBED BY: ? ELECTRONICALLY SIGNED BY: MD Raúl Grewal 11/15/2023 8:15 AM EDT EXAMINATION: BI MAMMOGRAM [...] suspicious mass, asymmetry, architectural distortion, or calcification IMPRESSION: BIRADS 2 - Benign Follow-up: Routine Screening Mamm COMMENT: Given dense breast tissue, recommend close correlation withself-breast and clinical exam findings. If any new symptoms or signspresent clinically, recommend ultrasound to complement mammography. Board Certified Radiologists. Accredited by the ACR and FDA. MAMMOGRAPHY IS VERY IMPORTANT TO YOUR HEALTH. THE [place] GUIDELINES RECOMMEND THAT WOMEN 40 [...] BY: ELECTRONICALLY SIGNED BY: Raul Desai MD Authorizing ProviderResult TypeResult StatusSammie Diaz NPIMG BI PROCEDURES Final Result from Last 3 Months or Most Recently Relevant to Health Maintenance Insurance Care Teams Team MemberRelationshipSpecialtyStart DateEnd Scott Troy MD [address] [facility] [address] [place] [address] PCP - GeneralInternal Medicine12/19/23 Sammie Diaz, DREDGE CAPTAIN [address] [facility] [address] [place] [address] Nurse PractitionerFanew england rehabilitation hospital at [facility] Medicine11/25/23
--- OUTSIDE RECORDS SUMMARY | 2025-05-06 10:27 | XMS_ITS | Patient Health Record ---
Author Organization [facility] [place] Address [address] [place] [address] Support Name Relationship Address Phone Jana Barragan Guarantor Unknown [phone] Reason For Referral No Information Plan Of Treatment No Information
--- OUTSIDE RECORDS SUMMARY | 2025-05-06 10:27 | XMS_ITS | Clinical Summary ---
Author Organization [employer] [facility] Address [id number] [facility] [place] [address] Care Team Providers Care Science Education Professor Name Role Phone Unavailable Primary Care Provider Unavailabl e Social History Tobacco UseTypesPacks/DayYears UsedDateSmoking Tobacco: Never AssessedChildcare AnswerDate PpjqfwhnBkjpukwfyGjgrztg10/12/2019EmploymentAnswerDate Recorded RhkwwrbmwvNohpuny96/12/2019CommentsUnknownSex and Gender Information ValueDate RecordedSex Assigned at BirthNot on fileLegal FmgLqpvmn91/06/2015 11:39 AM EDTGender IdentityNot on fileSexual OrientationNot on file Plan of Treatment Not on file Medical Devices Not on file
--- NOTE | 2025-05-06 10:46 | ED_ITS ---
HPI HPI - General Adult General Chief complaint: Wound/Laceration Stated complaint: LACERATION R ARM Time Seen by Provider: 05/06/25 10:09 Source: patient Mode of arrival: walk-in Limitations: no limitations History of Present Illness HPI narrative: Patient is a 44-year-old female presenting to the emergency department for evaluation of a laceration. Patient states she accidentally cut her forearm with a kitchen knife just prior to arrival. She denies any other injuries. She denies any weakness/numbness/tingling in the extremity or hand. She denies being on blood thinners. Unsure of her last tetanus shot, but she declines an update today. Related Data Previous Rx's ?Medication ?Instructions ?Recorded ibuprofen 800 mg tablet 800 mg PO Q8H PRN pain 14 da ys #40 01/31/25 tabs oxycodone-acetaminophen 5 mg-325 1 tab PO Q6H PRN pain 5 days #20 01/31/25 mg tablet (Percocet) tabs hydrocodone 5 mg-acetaminophen 325 1 tab PO Q4H PRN pa in 4 days #20 02/01/25 mg tablet tabs ondansetron 4 mg disintegrating 4 mg PO Q6H PRN nausea and 02/01/25 tablet vomiting 5 days #20 tabs pantoprazole 20 mg tablet,delayed 20 mg PO DAILY #30 t abs 02/01/25 release (Protonix) Allergies Allergy/AdvReac Type Severity Reaction Status Date / Time No Known Drug Allergies Allergy Verified 01/31/25 11:12 Opioid HPI Opioid Management Most Recent Opioid Data: Last Pain Scale 3 Today, 10:11 Review of Systems ROS Status of ROS 10 or more systems reviewed and unremark able except as noted in history and below [facility] Medical History (Updated 05/06/25 @ 10:38 by José Luis Malagon DO) Leiomyoma ?D21.9 - Benign neoplasm of connective and other soft tissue, unspecified (ICD-10) History of blood transfusion ?Z92.89 - Personal history of other medical treatment (ICD-10) Anemia ?D64.9 - Anemia, unspecified (ICD-10) Menorrhagia ?N92.0 - Excessive and frequent menstruation with regular cycle (ICD-10) Dysmenorrhea ?N94.6 - Dysmenorrhea, unspecified (ICD-10) Heartburn ?R12 - Heartburn (ICD-10) Irregular periods ?N92.6 - Irregular menstruation, unspecified (ICD-10) Uterine leiomyoma ?D25.9 - Leiomyoma of uterus, unspecified (ICD-10) Lupus Idiopathic thrombocytopenic purpura ?D69.3 - Immune thrombocytopenic purpura (ICD-10) Surgical History (Updated 01/31/25 @ 10:44 by Mary Abdi) History of colonoscopy ?Z98.890 - Other specified postprocedural states (ICD-10) H/O laparoscopy (11/16/24) ?Z98.890 - Other specified postprocedural states (ICD-10) History of foot surgery ?Z98.890 - Other specified postprocedural states (ICD-10) Family History (Updated 11/02/24 @ 10:18 by Maya Wilder NP) Other Family history of cancer Family history of diabetes mellitus Family history of hypertension Family history of myocardial infarction Family history of seizures Family history of stroke Social History (Updated 01/31/25 @ 11:12 by Rosibel Flores) Within the past year, how often did you have a drink containing alcohol: 2-4 times a month Smoking status: Never smoker Non-prescribed substance use: cannabis (any form) Non-prescribed substance use details: smoke or chewies Previous occupational history: Airline Attendant Highest level of school completed/degree received: high school graduate Little interest or pleasure in doing things: not at all Feeling down, depressed, or hopeless: not at all Exam Narrative Exam Narrative: CONSTITUTIONAL: Well-appearing, answering questions and following commands appropriately SKIN: Was warm and dry. EYES: Sclerae white. EARS, NOSE, THROAT: Moist oral mucosa. RESPIRATORY: Clear to auscultation bilaterally, no wheezes, crackles, or stridor, no use of accessory muscles CARDIOVASCULAR: Normal rate and regular rhythm. There is no S3, S4, murmur, rub. GASTROINTESTINAL: Abdomen is nondistended. MUSCULOSKELETAL: There is a linear, 4 cm laceration on the mid anterior forearm with minimal oozing blood. The wound is superficial, with only exposed adipose tissue. The wound is clean without foreign bodies. Full range of motion in the right forearm and throughout the right hand/fingers. NEUROLOGIC: Patient is awake and alert. Good strength and sensation to light touch distal to the injury. Constitutional Vital Signs, click to edit/add: Last Vital Signs Temp 98.5 F 05/06/25 10:05 Pulse 60 05/06/25 10:05 Resp 18 05/06/25 10:05 BP 132/83 05/06/25 10:05 Pulse Ox 98 05/06/25 10:05 Course Vital Signs Vital signs: Vital Signs Temperature 98.5 F 05/06/25 10:05 Pulse Rate 60 05/06/25 10:05 Respiratory Rate 18 05/06/25 10:05 Blood Pressure 132/83 05/06/25 10:05 Pulse Oximetry 98 05/06/25 10:05 Temperature 98.5 F 05/06/25 10:05 Pulse Rate 60 05/06/25 10:05 Respiratory Rate 18 05/06/25 10:05 Blood Pressure 132/83 05/06/25 10:05 Pulse Oximetry 98 05/06/25 10:05 Medical Decision Making MDM Narrative Medical decision making narrative: Patient is a 44-year-old female presenting to the emergency department for evaluation of right forearm laceration sustained just prior to arrival. She is hemodynamically stable and afebrile. She is neurovascularly intact distal to the injury. She has no evidence of tendon injury. The laceration was repaired by primary intention with sutures. I do believe the patient is stable for discharge. They were instructed to follow up with medical provider in 7 days for suture removal. Return precautions were given including any new or worsening symptoms. Patient understands and agrees to the plan. FINAL IMPRESSION: #Acute right forearm laceration requiring sutures DISPOSITION: Discharged home CONDITION: Good Discharge Plan Discharge Chief Complaint: Wound/Laceration Clinical Impression: Laceration Patient Disposition: Home, Self-Care Time of Disposition Decision: 10:37 Condition: Good Mode of Transportation: Private Vehicle Prescriptions / Home Meds: No Action ibuprofen 800 mg tablet 800 mg PO Q8H PRN (Reason: pain) 14 Days Qty: 40 0RF oxycodone-acetaminophen [Percocet] 5-325 mg tablet 1 tab PO Q6H PRN (Reason: pain) 5 Days Qty: 20 0RF hydrocodone-acetaminophen 5-325 mg tablet 1 tab PO Q4H PRN (Reason: pain) 4 Days Qty: 20 0RF ondansetron 4 mg tablet,disintegrating 4 mg PO Q6H PRN (Reason: nausea and vomiting) 5 Days Qty: 20 0RF pantoprazole [Protonix] 20 mg tablet,delayed release (DR/EC) 20 mg PO DAILY Qty: 30 3RF Print Language: Sammarinese Instructions: Care For Your Stitches (ED) Additional Instructions: See a medical provider in 7 days for suture removal. Referrals: Sammie Diaz CARVER HAND [Primary Care Provider] - 1 week Discharge Date/Time: 05/06/25 10:46 Procedures ED Laceration Laceration Laceration 1: Site: upper extremity Side (if applicable): right Size (cm): 4 Description: linear Depth: simple, single layer Anesthetic used: lidocaine 1% Anesthesia technique: local infiltration Amount (ml): 3 Pre-repair: irrigated extensively Skin layer closed with: other (Ethilon) Size (cm): 3-0 Number of sutures: 5 Technique: simple, interrupted
== END 2025-05-06 10:46 | disposition home or self-care (01) ==
PROVIDERS: Emergency Provider Student in an Organized Health Care Education/Training Program; PCP Nurse Practitioner Family
DX: S51.811A Laceration without foreign body of right forearm, initial encounter (principal); W26.0XXA Contact with knife, initial encounter
CPT/HCPCS: 12002; 99282